=== PATIENT | male | born 1960 | race African-American/Black ===

== ENCOUNTER 2020-05-16 18:45 | IRF | payer OTHER, SELFPAY ==
--- NOTE | ~2020-05-16 | CT_ITS ---
EXAMINATION:CT chest w con DATE: 05/20/2020 12:39 INDICATION: Esophageal stricture or suspicious for malignancy. TECHNIQUE: Computed tomography (CT) of the chest was performed with 75 mL Omnipaque 350 intravenous c ontrast. Automated exposure control and iterative reconstruction technique were employed. The dose-le ngth product (DLP) was 147.05 mGy-cm. COMPARISON: None. FINDINGS: There is mild emphysema. A calcified right lung nodule is consistent with old granulomatous disease. No pleural effusion. The heart size is normal. There are coronary artery calcifications. No pericardial effusion. There is an 8.3 x 4.4 x 2.8 cm mass of the distal esophagus. The esophagus is dilated and contains fluid proximal to this mass. There are no pathologically enlarged lymph nodes. T here is a 10 mm hyperdense cyst in left kidney. There is mild thoracic spondylosis. IMPRESSION: 1. Esophageal mass, consistent with primary malignancy. No evidence of metastatic disease. Reviewed, dictated and finalized at location A. IMPRESSION: 1. Esophageal mass, consistent with primary malignancy. No evidence of metastat ic disease.
[2020-05-16 18:20] VITALS: BP 118/97; PULSE 96; RESP 20; TEMP 36.9; O2SAT 100
--- NOTE | 2020-05-16 18:40 | ADMGEN ---
This patient, Bonifacio Beyer, was admitted to [facility] Room 223-01. Patient/family oriented to hospital policies and general routines including ID bracelet, bed and alarms, visiting hours, pain management, procedures, bathroom and other care routines, personal items, smoking policy, room service/diet, and visiting hours. Valuables list has been completed. Information on how to activate the Rapid Response Team has been discussed. Patient/Family are encouraged to report perceived risks to care and to ask questions if they do not understand what they are told or what they should do.
[2020-05-16 18:44] VITALS: BMI 23.3
[2020-05-16 21:14] VITALS: BP 116/56; PULSE 85; RESP 18; TEMP 36.8; O2SAT 100
[2020-05-16] MEDS: oxyCODONE HCL (*CRX) 5 MG TAB IR 10 MG PO (22:14)
[2020-05-16] MEDS: GABAPENTIN 300 MG CAPSULE 600 MG PO (22:14)
[2020-05-16] MEDS: FAMOTIDINE 20 MG TABLET PO (22:15)
[2020-05-16] MEDS: ROSUVASTATIN 10 MG TABLET PO (22:15)
[2020-05-17 04:38] LABS: Basophils Percent Auto 0.6 % (0.2-1.2); Eosinophils Absolute Auto 0.1 K/mm3 (0-0.3); Eosinophils Percent Auto 1.8 % (0-4.4); Hemoglobin 9.6 g/dL (14.0-18.0); Immature Granulocyte Absolute 0.02 K/mm3 (0.00-0.031); Immature Granulocyte Percent A 0.3 % (0-0.5); Lymphocytes Absolute Auto 1.75 K/mm3 (0.9-3.2); Lymphocytes Percent Auto 26.1 % (18.3-44.2); Mean Corpuscular Hemoglobin 25.5 pg (26-34); Mean Corpuscular Volume 79.8 fl (80-100); Mean Platelet Volume 8.9 fl (7.4-10.4); Monocytes Absolute Auto 0.7 K/mm3 (0.1-0.6); Neutrophils Percent Auto 60.2 % (45.5-73.1); Platelet Count Result 393 k/mm3 (150-375); Red Blood Count 3.76 M/mm3 (4.6-6.20); White Blood Count 6.7 K/mm3 (4.5-10.0)
[2020-05-17 04:53] LABS: Anion Gap 7 mmol/L (8-16); Blood Urea Nitrogen 10 mg/dL (9-20); Calcium 10.4 mg/dL (8.4-10.2); Carbon Dioxide 30 mmol/L (22-30); Chloride 93 mmol/L (98-107); Estimated Glomerular Filt Rate > 60; Glucose 104 mg/dL (75-110); Potassium 4.5 mmol/L (3.4-5.0); Sodium 130 mmol/L (137-145)
[2020-05-17 05:16] LABS: Platelet Estimate Adequate (Adequate)
[2020-05-17 05:17] LABS: Microcytosis 1+ (NORMAL)
[2020-05-17 05:18] LABS: Hypochromasia 1+ (NORMAL)
[2020-05-17 05:19] VITALS: BP 116/65; PULSE 91; RESP 20; TEMP 37.3; O2SAT 100
--- NOTE | 2020-05-17 08:30 | PC.NURSE ---
pt refused multivitamin, colace, and miralax this morning. pt states we are giving him too many medications at once. He also stated he does not take miralax. updated.
[2020-05-17] MEDS: ASPIRIN 81 MG CHEWABLE TABLET PO (08:49)
[2020-05-17] MEDS: CLOPIDOGREL BISULFATE 75 MG TABLET PO (08:49)
[2020-05-17] MEDS: THERAPEUTIC MULTIVITAMINS/MINERALS TAB (*BKC) 1 TABLET PO (08:49)
[2020-05-17] MEDS: FAMOTIDINE 20 MG TABLET PO ×2 (08:49→17:14)
[2020-05-17] MEDS: GABAPENTIN 300 MG CAPSULE PO (08:49)
[2020-05-17] MEDS: amLODIPine BESYLATE 5 MG TABLET 10 MG PO (08:49)
[2020-05-17] MEDS: oxyCODONE HCL (*CRX) 5 MG TAB IR 10 MG PO (08:53)
[2020-05-17] MEDS: DOCUSATE SODIUM 100 MG CAPSULE PO ×2 (08:53→17:15)
[2020-05-17] MEDS: ONDANSETRON HCL ODT 4 MG TABLET PO (08:57)
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
--- NOTE | 2020-05-17 12:51 | PC.NURSE ---
pt refused 1200 gabapentin. updated.
[2020-05-17 13:08] VITALS: BMI 23.3
--- NOTE | 2020-05-17 13:24 | RPD ---
INDIVIDUALIZED PLAN OF CARE FOR Bonifacio Beyer Brief Synthesis of Pre-Admission Screen, Post-Admission Evaluation and Therapy Evaluations: The patient presents to rehab with severely calcified atherosclerosis left lower extremity s/p left below-knee amputation in the setting of a prior right below knee amputation. Comorbidities include peripheral artery disease, hypertension, hypercholesterolemia, chronic obstructive pulmonary disease, gastroesophageal reflux disease, Hepatitis C, acute postoperative pain, acute blood loss anemia, intermittent emesis, constipation, and hyponatremia. The complexity of the patient's medical management, nursing, and therapy needs require an inpatient rehab hospital stay with a physician-led interdisciplinary team approach. The patient?s needs will be best met in an intensive program vs. at a lower level of care. The patient requires physician services for medical oversight, management of post-op complications in the setting of present comorbidities, management of new diabetes mellitus diagnosis, and pain management. Post-op complications have included acute postoperative pain, acute blood loss anemia, hyponatremia, constipation, emesis, and hypertension. The patient requires nursing services for anticoagulation therapy, DVT prophylactics, IV administration, infection protection, medication management and education, pressure relief, and wound care. Deficits include:ADLs, Balance, Endurance, Family Training/Education, Mobility, Pain Management, ROM, Safety, Strength, and Transfers. District Home Economics Agent/Case Management for: Discharge Planning and Patient/Family Counseling Physical Therapy: 5 days per week for 90 minutes. Treatments may include: Therapeutic Exercise, Gait Training, Neuromuscular Re-education, Transfer Training, Community Reintegration, Bed Mobility, Patient/Family Education, Wheelchair Mobility Group Therapy/Concurrent Therapy Rationales: -Improve attention span during functional activities in a distracted environment. -Enhance problem solving and/or adequate judgment skills during functional activities in a distracted environment. -Promote increased safety awareness in a distracted environment to reduce fall risk with functional tasks, transfers, and ambulation to allow a more safe, self-sufficient return to the home environment. -Improve dynamic balance skills to promote safety and independence with functional activities in a distracted environment for maximum gain. Occupational Therapy: 5 days per week for 90 minutes. Treatments may include: Therapeutic Exercise, Therapeutic Activity, Cognitive Training, Self-Care Transfer Training, Community Reintegration, Home Management, Patient/Family Education, Wheelchair Mobility Training, Energy Conservation Training Group Therapy/Concurrent Therapy Rationales: -Allow therapist to observe and teach generalization and carry-over of skills learned in individual therapy. -Enhance problem solving and sequencing skills during therapeutic activities in a distracted environment. -Promote increased safety awareness in a realistic setting to reduce fall risk with functional tasks due to visual and verbal distractions. -Increase functional level with ADLs, ADL transfers and use of adaptive equipment through therapeutic activities with others while promoting safety to allow a more safe, self-sufficient return home. Medical Prognosis: Good Anticipated Length of Stay: 14 days Rehab Goals: Eating Goal: 06-Independent Oral Hygiene Goal: 06-Independent Toileting Hygiene Goal: 06-Independent Shower/Bathe Self Goal: 06-Independent Upper Body Dressing Goal: 06-Independent Lower Body Dressing Goal: 06-Independent Putting On/Taking Off Footwear Goal: 09-Not Applicable Rolling Left and Right Goal: 06-Independent Sit to Lying Goal: 06-Independent Lying to Sitting on Side of Bed Goal: 06-Independent Sit to Stand Goal: 04-Supervision or Touching Assistance Chair/Cmw-xl-Trnvs Transfer Goal: 06-Inde
[2020-05-17 14:00] VITALS: BP 133/71; PULSE 88; RESP 18; TEMP 37.2; O2SAT 100
[2020-05-17] MEDS: oxyCODONE/ACETAMINOPHEN (*CRX) 5-325 MG TABLET 1 TABLET PO (15:23)
[2020-05-17] MEDS: oxyCODONE HCL (*CRX) 5 MG TAB IR PO (15:24)
[2020-05-17 22:00] VITALS: BP 124/67; PULSE 95; RESP 18; TEMP 37.2; O2SAT 99
[2020-05-18 06:00] VITALS: BP 122/73; PULSE 99; RESP 18; TEMP 37.1; O2SAT 100
[2020-05-18] MEDS: FAMOTIDINE 20 MG TABLET PO (08:50)
[2020-05-18] MEDS: ONDANSETRON HCL ODT 4 MG TABLET PO (13:05)
[2020-05-18 14:00] VITALS: BP 138/73; PULSE 107; RESP 20; TEMP 36.4; O2SAT 100
[2020-05-18 19:50] VITALS: PULSE 107; RESP 20; O2SAT 100
[2020-05-18 21:56] VITALS: BP 158/78; PULSE 101; RESP 20; TEMP 36.9; O2SAT 100
[2020-05-19] MEDS: ONDANSETRON HCL ODT 4 MG TABLET PO (02:15)
[2020-05-19] MEDS: oxyCODONE HCL (*CRX) 5 MG TAB IR PO (02:15)
[2020-05-19 06:00] VITALS: BP 145/76; PULSE 105; RESP 20; TEMP 36.4; O2SAT 100
[2020-05-19 14:00] VITALS: BP 142/78; PULSE 112; RESP 20; TEMP 36.9; O2SAT 100
--- NOTE | 2020-05-19 14:00 | PCPTNOTE ---
Attempted to see pt and 0900 and at 13:55 this date for Physical Therapy Services. Pt. refused therapy on both occasions despite encouragement to participate.
--- NOTE | 2020-05-19 14:38 | PCOTNOTE ---
Attempted to see patient three times for skilled OT session this date. First attempt, patient reported of 10/10 pain in the back, stomach and Left leg phantom pain and stated, I don't want to be bothered. Second attempt, patient was asleep upon entry and per RN, try again later. Third attempt, patient washed face, and then stated, I want to be left alone to sleep. Practitioner in room for only 5 minutes, not enough functional or skilled activity to charge at this time. Due to patient refusing to participate in OT sessions multiple times, minutes were not met this date.
[2020-05-19 17:14] LABS: Anion Gap 11 mmol/L (8-16); Blood Urea Nitrogen 18 mg/dL (9-20); Calcium 11.5 mg/dL (8.4-10.2); Carbon Dioxide 28 mmol/L (22-30); Chloride 94 mmol/L (98-107); Estimated Glomerular Filt Rate > 60; Glucose 117 mg/dL (75-110); Potassium 4.2 mmol/L (3.4-5.0); Sodium 133 mmol/L (137-145)
--- NOTE | 2020-05-19 17:38 | WPDNEURORHBP ---
Subjective Date/time seen: 05/19/20 17:38 Interval history: this 59-year-old gentleman is here after having had a left BKA his constant complaint has been the difficulty swallowing and regurgitating all the liquids or the 40 takes and I have requested a GI consult the patient tells me that it has been an issue and however he was not able to have the endoscopy performed as he was supposed to have done On the other hand is not any distress his pain is under control denies any fever chills sore throat is on fluid restrictions Review of Systems Review of Systems: All systems reviewed & are unremarkable except as noted in HPI and below Functional Status Transfers Ability Ability to Transfer In/Out of Chair: Minimum Assistance X 1 Exam Const: General: comfortable and no acute distress HENMT: General nose exam: Normal nares present Mouth: Yes moist mucous membranes Eyes: General: appearance normal, both eyes and all related structures Neck: Neck: supple and no JVD Resp: Effort & Inspection: normal respiratory effort Auscultation: clear to auscultation bilaterally Cardio: Rate: regular rate Rhythm: regular rhythm GI: GI Palp: Yes Soft to palpation Auscultation: normal bowel sounds Skin: General skin exam: normal color and no rashes or lesions noted Neuro: Other: patient is awake and alert well oriented follows all commands has normal speech and language function normal cranial examination decreased strength generally in both upper lower extremities and left BKA looks clean Extrem: Other: left BKA Psych: Mental Status: mental status grossly normal Objective Data Vital Signs Vital Signs: Vital Signs - 24 hr 05/18/20 19:50 05/18/20 21:56 05/19/20 06:00 Temperature 36.9 C 36.4 C Pulse Rate 107 H 101 H 105 H Respiratory Rate 20 20 20 Blood Pressure 158/78 H 145/76 H Pulse Oximetry 100 100 100 05/19/20 14:00 Temperature 36.9 C Pulse Rate 112 H Respiratory Rate 20 Blood Pressure 142/78 H Pulse Oximetry 100 Intake/Output Intake/Output: Intake & Output 05/16/20 05/17/20 05/18/20 05/19/20 23:59 23:59 23:59 23:59 Intake Total 720 600 480 Balance 720 600 480 Meds/Results Medications: Active Medications Generic Name Dose Route Start Last Admin Trade Name Freq PRN Reason Stop Dose Admin Acetaminophen 500 mg 05/16/20 21:36 Tylenol Tablet PO Q4H PRN Mild Pain (1-3) Albuterol 2 puff 05/16/20 20:13 Proventil Hfa INHALATION QID PRN Shortness Of Breath Or Wheezing Amlodipine Besylate 10 mg 05/17/20 09:00 05/19/20 16:51 Norvasc PO Not Given DAILY [facility] Aspirin 81 mg 05/17/20 09:00 05/19/20 16:51 Aspirin Chewable PO Not Given DAILY [facility] Clopidogrel Bisulfate 75 mg 05/17/20 09:00 05/19/20 16:52 Plavix PO Not Given DAILY [facility] Docusate Sodium 100 mg 05/17/20 09:00 05/19/20 16:56 Colace Capsule PO Not Given BID [facility] Famotidine 20 mg 05/16/20 17:00 05/19/20 16:56 Pepcid PO Not Given BID [facility] Gabapentin 300 mg 05/17/20 09:00 05/19/20 16:55 Neurontin PO Not Given 0900,1200 [facility] Gabapentin 600 mg 05/16/20 18:00 05/18/20 19:16 Neurontin PO Not Given 1800 [facility] Multivitamins/Calcium 1 tablet 05/17/20 09:00 05/19/20 16:53 Therapeutic Multivitamins/Minerals PO Not Given DAILY [facility] Ondansetron HCl 4 mg 05/16/20 20:13 05/19/20 02:15 Zofran Odt PO 4 mg Q8H PRN Administration Nausea And Vomiting Oxycodone HCl 10 mg 05/16/20 20:13 05/17/20 08:53 Roxicodone Ir Tablet PO 10 mg Q3H PRN Administration Breakthrough Pain Oxycodone HCl 5 mg 05/16/20 21:41 05/19/20 02:15 Roxicodone Ir Tablet PO 5 mg Q6H PRN Administration Pain Rated 6 or Greater Oxycodone/Acetaminophen 1 tablet 05/16/20 20:13 05/17/20 15:23 Percocet 5-325 Mg PO 1 tablet Q6H PRN Administration Pain Rated 6 or Greater Polyethylene Glycol 17 gm 05/17/20 09:00
[2020-05-19] MEDS: GABAPENTIN 300 MG CAPSULE 600 MG PO (18:18)
--- NOTE | 2020-05-19 21:29 | PC.NURSE ---
pt would not take hs medication. patient stated he had been having emesis and did not want to have any more. md updated. will continue to monitor.
[2020-05-19 21:39] VITALS: BP 139/79; PULSE 73; RESP 16; TEMP 36.4; O2SAT 98
[2020-05-20] VITALS (7 sets, daily range): BP systolic 113–158; BP diastolic 77–98; PULSE 77–114; RESP 16–35; TEMP 36.1–37.2; O2SAT 94–100
[2020-05-20] MEDS: LACTATED RINGERS 1,000 ML 150 ML IV CONT (09:15)
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
--- NOTE | 2020-05-20 09:30 | PCOTNOTE ---
Attempted OT treatment at 9:30, treatment unable to be completed due to patient out for procedure. Treatment was rescheduled.
--- NOTE | 2020-05-20 09:39 | WPDANESEPPF ---
Anes - Initial Pre Proc Eval Procedure: Operation Date: 05/20/20 10:00 Proposed Procedures p Esophagogastroduodenoscopy - Jose Israel MD Date/Time: 05/20/20 09:39 Surgeon: Kurt Hoko MD Pre Op Diagnosis: Pina ROBERTSON Patient Data Age: 59 Gender: M Height: 4 ft 9 in Weight: 48.8 kg Last Vital Signs Temp 97.5 F L 05/20/20 09:11 Pulse 88 05/20/20 09:11 Resp 16 05/20/20 09:11 BP 148/90 H 05/20/20 09:11 Pulse Ox 94 05/20/20 09:11 Allergies Allergy/AdvReac Type Severity Reaction Status Date / Time No Known Allergies Allergy Verified 05/20/20 09:10 Home Medications Medication Instructions Recorded Confirmed Type acetaminophen 500 mg PO Q4H PRN 05/16/20 05/16/20 History albuterol sulfate [Proventil HFA] 2 puff INHALATION QID PRN 05/16/20 05/16/20 History amlodipine 10 mg PO DAILY 05/16/20 05/16/20 History aspirin 81 mg PO DAILY 05/16/20 05/16/20 History clopidogrel 75 mg PO DAILY 05/16/20 05/16/20 History docusate sodium 100 mg PO BID 05/16/20 05/16/20 History famotidine 20 mg PO BID 05/16/20 05/16/20 History gabapentin 300 mg PO TID 05/16/20 05/16/20 History multivit with min-folic acid 1 mg PO DAILY 05/16/20 05/16/20 History [Adult One Daily Multivitamin] ondansetron 4 mg PO Q8H PRN 05/16/20 05/16/20 History oxycodone 10 mg PO Q3H PRN 05/16/20 05/16/20 History oxycodone-acetaminophen 1 tablet PO Q6H PRN 05/16/20 05/16/20 History polyethylene glycol 3350 17 g PO DAILY 05/16/20 05/16/20 History rosuvastatin 10 mg PO HS 05/16/20 05/16/20 History Laboratory Tests 05/19/20 16:56 Sodium 133 mmol/L L mmol/L (137-145) Potassium 4.2 mmol/L mmol/L (3.4-5.0) Chloride 94 mmol/L L mmol/L (98-107) Carbon Dioxide 28 mmol/L mmol/L (22-30) Anion Gap 11 mmol/L mmol/L (8-16) BUN 18 mg/dL mg/dL (9-20) Creatinine 0.60 mg/dL L mg/dL (0.7-1.3) Estim Creat Clear Calc Not Reportable Estimated GFR > 60 (59 - ) Glucose 117 mg/dL H mg/dL (75-110) Calcium 11.5 mg/dL H mg/dL (8.4-10.2) Patient hx anesthesia problems: none Family hx anesthesia problems: none PMFSH Past Medical History Medical History Dysphagia Esophageal stricture Hepatitis C Hypertension Ischemic leg pain Neuropathic pain Family History Family History Other Unknown family medical history Social History Social History Smoking status: Current every day smoker Alcohol intake: current Drinks per week: 4 Substance use: never Substance use type: does not use Gender identity (if verbalized by the patient): Male Spiritual care concerns: No Anes - Eval Final PreProcedure Day of Procedure 05/20/20 09:39 Patient weight: thin Heart: regular rate and rhythm Lungs: clear to auscultation Airway: Mallampati scale class II Neurological: alert and oriented Last oral intake: >/= 8 hours ASA classification: III Emergent: no Anesthetic plan: proceed Anesthesia type and monitoring: general GIVS and standard monitoring Informed Consent: The patient's anesthetic plan and its attendant risks and benefits were discussed with the patient/family/POA. Questions were solicited and answers provided to the satisfaction of the patient/family/POA.
--- NOTE | 2020-05-20 10:47 | SUR.PHASEII ---
1027-PT TRANSPORTED BACK TO [facility] ROOM 223-1. sALINE LOCKED FLUSHED AND CAPPED TO BE MAINTAINED FOR CT CHEST. MAGDA RN INSTRUCTED ON NEED TO MAINTAIN SALINE LOCK FOR CT CHEST AND TO DISCONTINUE SALINE LOCK. MAGDA VERBALIZED UNDERSTANDING.
--- NOTE | 2020-05-20 10:51 | WPDNEURORHBP ---
Subjective Date/time seen: 05/20/20 10:51 59 year olds is status post left BKA with abdominal discomfort and swallowing difficulties for which GI consult was obtained has been started on proton pump inhibitor therapy by the entry level marketing assistant with keeping the head of the bed elevated in addition to the underlying hepatitis-C for which she is being followed by the sentence in reverse the hospitals has gone through 2 endoscopic exam which revealed grossly malignant appearing esophagus for which biopsy has been taken Review of Systems Review of Systems: All systems reviewed & are unremarkable except as noted in HPI and below Functional Status Transfers Ability Ability to Transfer In/Out of Chair: Minimum Assistance X 1 Exam Narrative: Exam Narrative: examined this stage reveals fairly comfortable ear nose throat examination normal heart regular with no murmur lungs clear no rhonchi or crepitation abdomen at this stage is soft normal bowel sounds neuro examination revealed her to have no change in the status follows all the verbal commands reflexes symmetrical except the lower extremities Objective Data Vital Signs Vital Signs: Vital Signs - 24 hr 05/19/20 14:00 05/19/20 21:39 05/20/20 05:52 Temperature 36.9 C 36.4 C L 36.1 C L Pulse Rate 112 H 73 77 Respiratory Rate 20 16 16 Blood Pressure 142/78 H 139/79 156/87 H Pulse Oximetry 100 98 94 05/20/20 09:11 05/20/20 09:52 05/20/20 10:02 Temperature 36.4 C L Pulse Rate 88 104 H 100 Respiratory Rate 16 30 H 35 H Blood Pressure 148/90 H 113/77 124/86 Pulse Oximetry 94 98 98 05/20/20 10:12 Temperature Pulse Rate 96 Respiratory Rate 28 H Blood Pressure 145/94 H Pulse Oximetry 96 Intake/Output Intake/Output: Intake & Output 05/17/20 05/18/20 05/19/20 05/20/20 23:59 23:59 23:59 23:59 Intake Total 720 600 480 400 Balance 720 600 480 400 Meds/Results Medications: Active Medications Generic Name Dose Route Start Last Admin Trade Name Freq PRN Reason Stop Dose Admin Acetaminophen 500 mg 05/16/20 21:36 Tylenol Tablet PO Q4H PRN Mild Pain (1-3) Albuterol 2 puff 05/16/20 20:13 Proventil Hfa INHALATION QID PRN Shortness Of Breath Or Wheezing Amlodipine Besylate 10 mg 05/17/20 09:00 05/19/20 16:51 Norvasc PO Not Given DAILY [facility] Aspirin 81 mg 05/17/20 09:00 05/19/20 16:51 Aspirin Chewable PO Not Given DAILY [facility] Clopidogrel Bisulfate 75 mg 05/17/20 09:00 05/19/20 16:52 Plavix PO Not Given DAILY [facility] Docusate Sodium 100 mg 05/17/20 09:00 05/19/20 16:56 Colace Capsule PO Not Given BID [facility] Famotidine 20 mg 05/16/20 17:00 05/19/20 16:56 Pepcid PO Not Given BID [facility] Gabapentin 300 mg 05/17/20 09:00 05/19/20 16:55 Neurontin PO Not Given 0900,1200 [facility] Gabapentin 600 mg 05/16/20 18:00 05/19/20 18:18 Neurontin PO 600 mg 1800 [facility] Administration Multivitamins/Calcium 1 tablet 05/17/20 09:00 05/19/20 16:53 Therapeutic Multivitamins/Minerals PO Not Given DAILY [facility] Ondansetron HCl 4 mg 05/16/20 20:13 05/19/20 02:15 Zofran Odt PO 4 mg Q8H PRN Administration Nausea And Vomiting Oxycodone HCl 10 mg 05/16/20 20:13 05/17/20 08:53 Roxicodone Ir Tablet PO 10 mg Q3H PRN Administration Breakthrough Pain Oxycodone HCl 5 mg 05/16/20 21:41 05/19/20 02:15 Roxicodone Ir Tablet PO 5 mg Q6H PRN Administration Pain Rated 6 or Greater Oxycodone/Acetaminophen 1 tablet 05/16/20 20:13 05/17/20 15:23 Percocet 5-325 Mg PO 1 tablet Q6H PRN Administration Pain Rated 6 or Greater Pantoprazole Sodium 40 mg 05/20/20 21:00 Protonix Iv IV PUSH Q12HR [facility] Polyethylene Glycol 17 gm 05/17/20 09:00 05/19/20 16:54 Miralax PO Not Given DAILY [facility] Rosuvastatin Calcium 10 mg 05/16/20 21:00 05/19/20 20:05 Crestor PO Not Given [facility] Labs Labs: Laboratory Results - last 24 h
--- NOTE | 2020-05-20 10:52 | PCOTNOTE ---
OT treatment re-attempted at 10:00 and 10:45. Despite attempts to reschedule pt he was unable to be seen this AM due to procedure and testing. Will continue to attempt.
[2020-05-20 10:59] LABS: Basophils Percent Auto 0.2 % (0.2-1.2); Eosinophils Percent Auto 0.1 % (0-4.4); Hematocrit 38.3 % (42.0-52.0); Hemoglobin 11.9 g/dL (14.0-18.0); Immature Granulocyte Absolute 0.05 K/mm3 (0.00-0.031); Immature Granulocyte Percent A 0.5 % (0-0.5); Lymphocytes Absolute Auto 1.66 K/mm3 (0.9-3.2); Lymphocytes Percent Auto 15.2 % (18.3-44.2); Mean Corpuscular HGB Conc 31.1 g/dl (32-36); Mean Corpuscular Hemoglobin 25.6 pg (26-34); Mean Corpuscular Volume 82.4 fl (80-100); Mean Platelet Volume 9.6 fl (7.4-10.4); Monocytes Absolute Auto 0.9 K/mm3 (0.1-0.6); Monocytes Percent Auto 8.2 % (2.6-8.5); Neutrophils Absolute Auto 8.3 K/mm3 (1.3-6.7); Neutrophils Percent Auto 75.8 % (45.5-73.1); Platelet Count Result 473 k/mm3 (150-375); Red Blood Count 4.65 M/mm3 (4.6-6.20); Red Cell Distribution Width 20.5 % (11.5-14.5); White Blood Count 10.9 K/mm3 (4.5-10.0)
[2020-05-20 11:09] LABS: Prothrombin Time 13.3 Seconds (11.1-14.7)
[2020-05-20 11:10] LABS: Alanine Aminotransferase 27 U/L (4-50); Albumin Level 4.2 g/dL (3.5-5.1); Alkaline Phosphatase 117 U/L (38-126); Anion Gap 13 mmol/L (8-16); Aspartate Amino Transferase 29 U/L (17-59); Bilirubin,Total 0.5 mg/dL (0.2-1.3); Blood Urea Nitrogen 22 mg/dL (9-20); Calcium 11.3 mg/dL (8.4-10.2); Carbon Dioxide 26 mmol/L (22-30); Chloride 95 mmol/L (98-107); Estimated Glomerular Filt Rate > 60; Glucose 112 mg/dL (75-110); Potassium 4.3 mmol/L (3.4-5.0); Sodium 134 mmol/L (137-145)
[2020-05-20 11:32] LABS: Iron 36 ug/dL (49-181)
[2020-05-20 11:41] LABS: Percent Iron Saturation 11 % (20-50)
--- NOTE | 2020-05-20 12:05 | PCPTNOTE ---
Mr. Beyer did not receive his physical therapy this am. The patient was taken to testing and gone all morning- unavailable. Will attempt therapy after lunch. Balbina Antoine PT
--- NOTE | 2020-05-20 13:17 | PC.NURSE ---
Patients daughter is here, I let Dr. Israel know that patient and daughter are anxious to speak with him about test results, his office sated he would not be able to be here until after hours(5pm), daughter made aware
--- NOTE | 2020-05-20 14:06 | PCPTNOTE ---
Bonifacio Beyer was evaluated for a slide board on 05/20/2020 by this physical therapist. The slide board will resolve patient's mobility limitations and will be used for ADL's within the home. The patient can safely use the slide board. ?The slide board will resolve the patient?s mobility deficits, including car transfers. Balbina Antoine PT
--- NOTE | 2020-05-20 14:48 | PCOTNOTE ---
OT minutes not met this date due to patient out for procedure in AM and pt resistive to all therapy in PM due to complaints of fatigue.
[2020-05-20] MEDS: DOCUSATE SODIUM LIQ 100 MG/10 ML UDC PO (17:00)
[2020-05-20] MEDS: GABAPENTIN 300 MG CAPSULE 600 MG PO (17:44)
[2020-05-20] MEDS: FAMOTIDINE 20 MG TABLET PO (17:44)
[2020-05-20] MEDS: PANTOPRAZOLE SODIUM IV 40 MG VIAL IV PUSH (22:06)
[2020-05-20] MEDS: ROSUVASTATIN 10 MG TABLET PO (22:07)
[2020-05-21 06:00] VITALS: BP 145/80; PULSE 108; RESP 16; TEMP 37.4; O2SAT 100
--- NOTE | 2020-05-21 07:25 | PC.NURSE ---
call placed to Dr Concepcion this morning to update him regarding consult for patient per Dr Israel request. Dr Concepcion to see today.
--- NOTE | 2020-05-21 08:04 | WPDANESPN ---
Anes - Prog Note Post-Op Date/Time: 05/21/20 08:04 Cardiovascular status: normal Respiratory status: normal Airway patency: baseline Mental status: baseline Post-Op hydration status: normal Vital Signs: Last Vital Signs Temp 37.4 C 05/21/20 06:00 Pulse 108 H 05/21/20 06:00 Resp 16 05/21/20 06:00 BP 145/80 H 05/21/20 06:00 Pulse Ox 100 05/21/20 06:00 Pain Score (VAS): 0 I/O: Intake & Output 05/20/20 05/21/20 05/21/20 23:59 07:59 15:59 Intake Total 250 Balance 250 Laboratory Tests 05/20/20 10:49 05/20/20 10:49 05/20/20 05/20/20 05/20/20 10:49 10:49 10:49 WBC 10.9 H RBC 4.65 Hgb 11.9 L Hct 38.3 L MCV 82.4 MCH 25.6 L MCHC 31.1 L RDW 20.5 H Plt Count 473 H MPV 9.6 Immature Gran % (Auto) 0.5 Neut % (Auto) 75.8 H Lymph % (Auto) 15.2 L Piatt % (Auto) 8.2 Eos % (Auto) 0.1 Baso % (Auto) 0.2 Lymph # (Auto) 1.66 Piatt # (Auto) 0.9 H Eos # (Auto) 0.0 Baso # (Auto) 0.0 Abs Immat Gran (auto) 0.05 H Absolute Neuts (auto) 8.3 H Absolute Nucleated RBC 0.0 Nucleated RBC % 0.0 PT 13.3 INR 1.0 Sodium Potassium Chloride Carbon Dioxide Anion Gap BUN Creatinine Estim Creat Clear Calc Estimated GFR Glucose Calcium Iron 36 L TIBC 317 % Saturation 11 L Ferritin 64.60 Total Bilirubin Direct Bilirubin AST ALT Alkaline Phosphatase Total Protein Albumin 05/20/20 10:49 WBC RBC Hgb Hct MCV MCH MCHC RDW Plt Count MPV Immature Gran % (Auto) Neut % (Auto) Lymph % (Auto) Piatt % (Auto) Eos % (Auto) Baso % (Auto) Lymph # (Auto) Piatt # (Auto) Eos # (Auto) Baso # (Auto) Abs Immat Gran (auto) Absolute Neuts (auto) Absolute Nucleated RBC Nucleated RBC % PT INR Sodium 134 L Potassium 4.3 Chloride 95 L Carbon Dioxide 26 Anion Gap 13 BUN 22 H Creatinine 0.60 L Estim Creat Clear Calc Not Reportable Estimated GFR > 60 Glucose 112 H Calcium 11.3 H Iron TIBC % Saturation Ferritin Total Bilirubin 0.5 Direct Bilirubin 0.0 AST 29 ALT 27 Alkaline Phosphatase 117 Total Protein 9.0 H Albumin 4.2 Post-procedural complaints: none Patient Feedback: Patient satisfied with anesthetic care.
[2020-05-21] MEDS: PANTOPRAZOLE SODIUM IV 40 MG VIAL IV PUSH (09:00)
--- NOTE | 2020-05-21 09:21 | WPDGIPROGNO ---
Progress Note: A&P Assessment and Plan (1) Cancer of distal third of esophagus: Code(s): C15.5 - Malignant neoplasm of lower third of esophagus Status: Acute Assessment and Plan: Final histology on esophageal mass pending. Oncology consultation pending. CT scan reveals no obvious metastases. Plan is to proceed with percutaneous endoscopic gastrostomy tomorrow. Anticipate Oncology to consider radiation and chemo. Hopefully for ultimate resection. This patient [facility] under the care of the hospitalist service. nutrition is a vital importance in order to tolerated chemotherapy. Also to continue rehab. Currently patient too weak for rehab. (2) Dysphagia: Code(s): R13.10 - Dysphagia, unspecified Status: Acute (3) Hepatitis C: Code(s): B19.20 - Unspecified viral hepatitis C without hepatic coma Status: Acute Assessment and Plan: Hepatitis C by sit history. Status of treatment for this is unclear. (4) Complete below-knee amputation of right lower extremity: Code(s): S88.111A - Complete traumatic amputation at level between knee and ankle, right lower leg, initial encounter Status: Acute (5) Complete below-knee amputation of left lower extremity: Code(s): S88.112A - Complete traumatic amputation at level between knee and ankle, left lower leg, initial encounter Status: Acute Subjective Date/time seen: 05/21/20 09:21 Patient reports unable to keep but small amounts of liquid down. Denies any abdominal pain. He states he is too weak for rehab. Review of Systems Review of Systems: All systems reviewed & are unremarkable except as noted in HPI and below Exam Narrative: Exam Narrative: Physical exam reveals patient comfortable at rest. HEENT exam unremarkable throat is clear. Lungs are clear. Heart without murmur. Abdomen is soft and nontender bilateral amputations noted. Objective Data Vital Signs Vital Signs: Vital Signs - 24 hr 05/20/20 09:52 05/20/20 10:02 05/20/20 10:12 Temperature Pulse Rate 104 H 100 96 Respiratory Rate 30 H 35 H 28 H Blood Pressure 113/77 124/86 145/94 H Pulse Oximetry 98 98 96 05/20/20 14:00 05/20/20 22:00 05/21/20 06:00 Temperature 97.9 F 98.9 F 99.3 F Pulse Rate 114 H 105 H 108 H Respiratory Rate 20 18 16 Blood Pressure 158/98 H 146/86 H 145/80 H Pulse Oximetry 100 100 100 Intake/Output Intake/Output: Intake & Output 05/18/20 05/19/20 05/20/20 05/21/20 23:59 23:59 23:59 23:59 Intake Total 600 480 400 250 Balance 600 480 400 250 Meds/Results Medications: Active Medications Generic Name Dose Route Start Last Admin Trade Name Freq PRN Reason Stop Dose Admin Acetaminophen 500 mg 05/20/20 17:33 Tylenol Elixir PO Q4H PRN PAIN 1-3 Albuterol 2 puff 05/16/20 20:13 Proventil Hfa INHALATION QID PRN Shortness Of Breath Or Wheezing Amlodipine Besylate 10 mg 05/17/20 09:00 05/20/20 09:00 Norvasc PO Not Given DAILY [facility] Aspirin 81 mg 05/17/20 09:00 05/20/20 09:00 Aspirin Chewable PO Not Given DAILY [facility] Clopidogrel Bisulfate 75 mg 05/17/20 09:00 05/20/20 09:00 Plavix PO Not Given DAILY [facility] Docusate Sodium 100 mg 05/20/20 17:00 05/20/20 17:00 Colace Liquid PO 100 mg BID [facility] Administration Famotidine 20 mg 05/16/20 17:00 05/20/20 17:44 Pepcid PO 20 mg BID [facility] Administration Gabapentin 300 mg 05/17/20 09:00 05/20/20 12:51 Neurontin PO Not Given 0900,1200 [facility] Gabapentin 600 mg 05/16/20 18:00 05/20/20 17:44 Neurontin PO 600 mg 1800 [facility] Administration Multivitamins/Minerals 15 ml 05/21/20 09:00 Centrum Liquid PO QAM [facility] Ondansetron HCl 4 mg 05/16/20 20:13 05/19/20 02:15 Zofran Odt PO 4 mg Q8H PRN Administration Nausea And Vomiting Oxycodone HCl 10 mg 05/16/20 20:13 05/17/20 08:53 Roxicodo
--- NOTE | 2020-05-21 09:45 | PCPTNOTE ---
Bonifacio Beyer was evaluated for a slideboard on 05/21/2020 by this physical therapist. The slideboard will resolve patient's mobility limitations and will be used for ADL's within the home. The patient can safely use the slideboard. ?The slideboard will resolve the patient?s mobility deficits, including improved independence with unlevel and car transfers. Lety Cordero, PT. DPT
[2020-05-21 10:02] LABS: Basophils Percent Auto 0.3 % (0.2-1.2); Eosinophils Percent Auto 0.1 % (0-4.4); Hematocrit 35.1 % (42.0-52.0); Hemoglobin 11.2 g/dL (14.0-18.0); Immature Granulocyte Absolute 0.08 K/mm3 (0.00-0.031); Immature Granulocyte Percent A 0.7 % (0-0.5); Lymphocytes Percent Auto 14.1 % (18.3-44.2); Mean Corpuscular HGB Conc 31.9 g/dl (32-36); Mean Corpuscular Hemoglobin 25.6 pg (26-34); Mean Corpuscular Volume 80.3 fl (80-100); Mean Platelet Volume 9.3 fl (7.4-10.4); Monocytes Percent Auto 8.5 % (2.6-8.5); Neutrophils Absolute Auto 8.7 K/mm3 (1.3-6.7); Neutrophils Percent Auto 76.3 % (45.5-73.1); Platelet Count Result 503 k/mm3 (150-375); Red Blood Count 4.37 M/mm3 (4.6-6.20); Red Cell Distribution Width 19.7 % (11.5-14.5); White Blood Count 11.4 K/mm3 (4.5-10.0)
[2020-05-21 10:11] LABS: INR 1.1; Prothrombin Time 13.7 Seconds (11.1-14.7)
[2020-05-21 10:12] LABS: Partial Thromboplastin Time 28.6 SECONDS (22.3-36.8)
[2020-05-21 10:14] LABS: Anion Gap 9 mmol/L (8-16); Blood Urea Nitrogen 25 mg/dL (9-20); Calcium 11.4 mg/dL (8.4-10.2); Carbon Dioxide 30 mmol/L (22-30); Chloride 92 mmol/L (98-107); Estimated Glomerular Filt Rate > 60; Glucose 112 mg/dL (75-110); Potassium 4.4 mmol/L (3.4-5.0); Sodium 131 mmol/L (137-145)
[2020-05-21] MEDS: amLODIPine BESYLATE 5 MG TABLET 10 MG PO (13:49)
[2020-05-21 14:00] VITALS: BP 160/91; PULSE 110; RESP 16; TEMP 36.4; O2SAT 97
--- NOTE | 2020-05-21 15:08 | WPDNEURORHBP ---
Subjective Date/time seen: 05/21/20 15:08 Interval history: this 59-year-old Afro-[place] gentleman is here after having had the left BKA. He has at least few months history of not able to eat and throwing up which was evaluated by our fixed wing aircraft flight mechanic and as it turns out unfortunately the patient does indeed seem to have esophageal cancer at the lower 3rd for which the biopsies have been taken a CT of the chest does reveal as of usual mass however no metastases the plan is for the PEG tomorrow and then oncology consultation for ultimate treatment for the cancer the patient overall is stable and this was discussed in over team conference with the daughter in fact Dr. perez the fixed wing aircraft flight mechanic was able to talk to her yesterday Review of Systems Review of Systems: All systems reviewed & are unremarkable except as noted in HPI and below Functional Status Transfers Ability Ability to Transfer In/Out of Chair: Standby Assistance Exam Const: General: comfortable and no acute distress HENMT: General nose exam: Normal nares present Mouth: Yes moist mucous membranes Eyes: General: appearance normal, both eyes and all related structures Neck: Neck: supple and no JVD Resp: Effort & Inspection: normal respiratory effort Auscultation: clear to auscultation bilaterally Cardio: Rate: regular rate Rhythm: regular rhythm GI: GI Palp: Yes Soft to palpation Auscultation: normal bowel sounds Skin: General skin exam: normal color and no rashes or lesions noted Neuro: Other: patient is awake alert and well oriented not any distress the BKA is doing fairly well has generalized weakness Extrem: Other: left BKA Psych: Mental Status: mental status grossly normal Objective Data Vital Signs Vital Signs: Vital Signs - 24 hr 05/20/20 22:00 05/21/20 06:00 05/21/20 14:00 Temperature 37.2 C 37.4 C 36.4 C Pulse Rate 105 H 108 H 110 H Respiratory Rate 18 16 16 Blood Pressure 146/86 H 145/80 H 160/91 H Pulse Oximetry 100 100 97 Intake/Output Intake/Output: Intake & Output 05/18/20 05/19/20 05/20/20 05/21/20 23:59 23:59 23:59 23:59 Intake Total 600 480 760 370 Balance 600 480 760 370 Meds/Results Medications: Active Medications Generic Name Dose Route Start Last Admin Trade Name Freq PRN Reason Stop Dose Admin Acetaminophen 500 mg 05/20/20 17:33 Tylenol Elixir PO Q4H PRN PAIN 1-3 Albuterol 2 puff 05/16/20 20:13 Proventil Hfa INHALATION QID PRN Shortness Of Breath Or Wheezing Amlodipine Besylate 10 mg 05/17/20 09:00 05/21/20 13:49 Norvasc PO 10 mg DAILY [facility] Administration Aspirin 81 mg 05/17/20 09:00 05/21/20 13:49 Aspirin Chewable PO Not Given DAILY [facility] Clopidogrel Bisulfate 75 mg 05/17/20 09:00 05/21/20 13:49 Plavix PO Not Given DAILY [facility] Docusate Sodium 100 mg 05/20/20 17:00 05/21/20 13:50 Colace Liquid PO Not Given BID [facility] Famotidine 20 mg 05/16/20 17:00 05/21/20 13:50 Pepcid PO Not Given BID [facility] Gabapentin 300 mg 05/17/20 09:00 05/21/20 13:53 Neurontin PO Not Given 0900,1200 [facility] Gabapentin 600 mg 05/16/20 18:00 05/20/20 17:44 Neurontin PO 600 mg 1800 [facility] Administration Multivitamins/Minerals 15 ml 05/21/20 09:00 05/21/20 13:51 Centrum Liquid PO Not Given [facility] Ondansetron HCl 4 mg 05/16/20 20:13 05/19/20 02:15 Zofran Odt PO 4 mg Q8H PRN Administration Nausea And Vomiting Oxycodone HCl 10 mg 05/16/20 20:13 05/17/20 08:53 Roxicodone Ir Tablet PO 10 mg Q3H PRN Administration Breakthrough Pain Oxycodone HCl 5 mg 05/16/20 21:41 05/19/20 02:15 Roxicodone Ir Tablet PO 5 mg Q6H PRN Administration Pain Rated 6 or Greater Oxycodone/Acetaminophen 1 tablet 05/16/20 20:13 05/17/20 15:23 Percocet 5-325 Mg PO 1 tablet Q6H PRN Administration Pain Rated 6 or Greater Pantoprazole Sodium 40 mg 05/20/20 21:00 05/21/20 0
--- NOTE | 2020-05-21 16:33 | PDONCCN ---
HPI - Date of Consult Date/Time: 05/21/20 16:33 Requesting Physician: Kurt Hook MD Primary Care Provider: Phill Cuenca, - Consult Narrative Reason for consult: Esophageal mass Narrative: Bonifacio Beyer is a 59 year old male This is a 59-year-old male with history of peripheral vascular disease along with history of smoking and drinking had left [id number] amputation done in September of 2019. He had right [id number] amputation done just 2 weeks ago at [facility]. According to patient been dealing with dysphagia for solids and liquids and has lost more than 30 lb weight in losses multiyear zhang. We complain of some with epigastric pain. He denies any bleeding and bruising. Patient has intermittent nausea vomiting for last 3-4 months duration.. Denies any melena hematochezia. He had EGD done by Dr. Israel. EGD on May 20 showed malignant-appearing mass with intrinsic stenosis in the distal esophagus. Biopsies were taken and pathology is pending. CT chest done showed esophageal mass in the distal esophagus without any evidence of metastatic disease. Review of Systems - Review of Systems All systems reviewed & are unremarkable except as noted in HPI and [facility] Medical History: Medical History (Last Reviewed 05/20/20 @ 09:20 by Jose Israel MD) Dysphagia Esophageal stricture Hepatitis C Hypertension Ischemic leg pain Neuropathic pain Family History: Family History (Last Reviewed 05/20/20 @ 09:20 by Jose Israel MD) Other Unknown family medical history - Social History Social History: Social History (Last Reviewed 05/20/20 @ 09:20 by Jose Israel MD) Gender Identity: Gender identity (if verbalized by the patient): Male Alcohol Use: Alcohol intake: current Drinks per week: 4 Substance Use: Substance use: never Substance use type: does not use Others: Spiritual care concerns: No Smoking Status: Smoking status: Current every day smoker Meds Home Medications Medication Instructions Recorded Confirmed Type acetaminophen 500 mg PO Q4H PRN 05/16/20 05/16/20 History albuterol sulfate [Proventil HFA] 2 puff INHALATION QID PRN 05/16/20 05/16/20 History amlodipine 10 mg PO DAILY 05/16/20 05/16/20 History aspirin 81 mg PO DAILY 05/16/20 05/16/20 History clopidogrel 75 mg PO DAILY 05/16/20 05/16/20 History docusate sodium 100 mg PO BID 05/16/20 05/16/20 History famotidine 20 mg PO BID 05/16/20 05/16/20 History gabapentin 300 mg PO TID 05/16/20 05/16/20 History multivit with min-folic acid 1 mg PO DAILY 05/16/20 05/16/20 History [Adult One Daily Multivitamin] ondansetron 4 mg PO Q8H PRN 05/16/20 05/16/20 History oxycodone 10 mg PO Q3H PRN 05/16/20 05/16/20 History oxycodone-acetaminophen 1 tablet PO Q6H PRN 05/16/20 05/16/20 History polyethylene glycol 3350 17 g PO DAILY 05/16/20 05/16/20 History rosuvastatin 10 mg PO HS 05/16/20 05/16/20 History Allergies Allergy/AdvReac Type Severity Reaction Status Date / Time No Known Allergies Allergy Verified 05/20/20 09:10 Results - Labs CBC & Chem 7: 05/21/20 09:51 05/21/20 09:51 Labs: Short CBC 05/21/20 Range/Units 09:51 WBC 11.4 H (4.5-10.0) K/mm3 Hgb 11.2 L (14.0-18.0) g/dL Hct 35.1 L (42.0-52.0) % Plt Count 503 H (150-375) k/mm3 [facility] 05/21/20 09:51 Sodium 131 L Potassium 4.4 Chloride 92 L Carbon Dioxide 30 BUN 25 H Creatinine 0.60 L Glucose 112 H Calcium 11.4 H Assessment and Plan - Additional Plan Squamous cell carcinoma esophagus. Patient is status post EGD and biopsy. EGD showed malignant-appearing mass with intrinsic stenosis of the distal esophagus. CT scan of the chest showed esophageal mass measures 8.3 x 4.4 x 2.8 cm without any evidence of metastatic disease. This patient has a history of peripheral vascular disease status post bilateral be
[2020-05-21] MEDS: CYANOCOBALAMIN INJ 1,000 MCG/ML VIAL 1000 MCG IM (18:02)
[2020-05-21] MEDS: IRON SUCROSE COMPLEX 500 MG in SODIUM CHLORIDE 0.9% IV 250 ML 78.6 MG IVPB (18:03)
[2020-05-21 22:00] VITALS: BP 147/86; PULSE 110; RESP 18; TEMP 36.4; O2SAT 100
--- NOTE | 2020-05-21 22:22 | PC.NURSE ---
pt iv infiltrated during day shift. iv access unavailable at this time. multiple attempts have been made to restart iv access.
[2020-05-22] VITALS (8 sets, daily range): BP systolic 103–154; BP diastolic 72–90; PULSE 68–114; RESP 16–29; TEMP 36.1–36.8; O2SAT 98–100
--- NOTE | 2020-05-22 05:55 | PC.NURSE ---
patient refused po hs med last night stating it would make him sick. md updated.His other medication was not given due to IV access infiltrating on previous shift and nursing unable to get iv access reestablished. call placed to Glory with message left to help with access.
--- NOTE | 2020-05-22 07:47 | PCOTNOTE ---
Attempted AM treatment per patient requested time; however, patient reports he was unable to sleep last night and is awaiting nursing procedure. Patient declined OT at this time but states he would like to participate at a later time if able. Will reschedule and continue to attempt treatment.
--- NOTE | 2020-05-22 09:35 | PC.NURSE ---
IV access obtained by Glory Chen, vascular access nurse, #[id number] in left forearm, she suggested that no further iron be given through this IV, patient has very poor vascular access, I called Dr. Concepcion's office to update. Patient is not c/o of any pain this am. has remained NPO, called [facility] to come speak with patient per his request
[2020-05-22] MEDS: LACTATED RINGERS 1,000 ML 150 ML IV CONT (10:25)
--- NOTE | 2020-05-22 10:37 | PCDIET ---
Nutrition Follow-Up Complete: Nutrition Diagnosis: Predicted suboptimal oral intake related to decreased appetite as evidenced by patient statements and reported poor intake prior to admission. Nutrition Goal: Patient to consume 50% of meals/supplements or greater. Goal not met. Patient taking some clear liquids previously. Currently in GI lab for PEG placement due to esophageal mass. Recommend initiating enteral feedings when medically appropriate: Jevity 1.2 beginning at 20mL/hr and advancing by 10mL/hr every 8 hours, as tolerated, to goal of 70mL/hr. Given 22 hour/day infusion, this will provide 1848kcal, 85g protein and 1242mL free water. Suggest 50mL water flush every 4 hours and adjust, as needed. If bolus feedings are preferred, recommend 75mL Jevity 1.2 bolus x 1; if tolerated, increase each subsequent bolus by 75mL (every 4 hours) to goal of 250mL every 4 hours x 6 feedings per day. Flush with 50mL water every 4 hours and adjust, as needed, per fluid status. Last recorded weight is 48.8 kg. Recommend obtaining new weight. Bowel Motility: Last BM 05/16/20 per nursing flowsheet. Labs Reviewed: Hgb (11.2), Hct (35.1), BUN (25), Cr (0.6), Na (131), Ca (11.4) Meds Noted: Albuterol, Colace, Pepcid, Centrum, Protonix, Miralax Additional Notes: Noted patient has been unable to swallow some oral medications. Expect BM with initiating of tube feedings and administration of Miralax and/or Colace via PEG. Left leg with BKA site, although no documented pressure ulcers. Will continue to monitor with new goal of patient to meet estimated nutritional needs. Nutrition Monitoring and Evaluation: Follow up every Wednesday/Wednesday.
--- NOTE | 2020-05-22 11:02 | WPDANESEPPF ---
Anes - Initial Pre Proc Eval Procedure: Operation Date: 05/20/20 10:00 Proposed Procedures p Esophagogastroduodenoscopy - Jose Israel MD Operation Date: 05/22/20 11:00 Proposed Procedures p Percutaneous Endoscopic Gastrostomy - Jose Israel MD Date/Time: 05/22/20 11:02 Surgeon: Kurt Hook MD Pre Op Diagnosis: Pina NANCEA Patient Data Age: 59 Gender: M Height: 4 ft 9 in Weight: 48.8 kg Last Vital Signs Temp 97.4 F L 05/22/20 10:24 Pulse 81 05/22/20 10:24 Resp 18 05/22/20 10:24 BP 133/86 05/22/20 10:24 Pulse Ox 100 05/22/20 10:24 Allergies Allergy/AdvReac Type Severity Reaction Status Date / Time No Known Allergies Allergy Verified 05/20/20 09:10 Home Medications Medication Instructions Recorded Confirmed Type acetaminophen 500 mg PO Q4H PRN 05/16/20 05/16/20 History albuterol sulfate [Proventil HFA] 2 puff INHALATION QID PRN 05/16/20 05/16/20 History amlodipine 10 mg PO DAILY 05/16/20 05/16/20 History aspirin 81 mg PO DAILY 05/16/20 05/16/20 History clopidogrel 75 mg PO DAILY 05/16/20 05/16/20 History docusate sodium 100 mg PO BID 05/16/20 05/16/20 History famotidine 20 mg PO BID 05/16/20 05/16/20 History gabapentin 300 mg PO TID 05/16/20 05/16/20 History multivit with min-folic acid 1 mg PO DAILY 05/16/20 05/16/20 History [Adult One Daily Multivitamin] ondansetron 4 mg PO Q8H PRN 05/16/20 05/16/20 History oxycodone 10 mg PO Q3H PRN 05/16/20 05/16/20 History oxycodone-acetaminophen 1 tablet PO Q6H PRN 05/16/20 05/16/20 History polyethylene glycol 3350 17 g PO DAILY 05/16/20 05/16/20 History rosuvastatin 10 mg PO HS 05/16/20 05/16/20 History Laboratory Tests 05/21/20 09:49 Vitamin B12 429.0 pg/mL pg/mL ([id number]) Patient hx anesthesia problems: none Family hx anesthesia problems: none [facility] Past Medical History Medical History Dysphagia Esophageal stricture Hepatitis C Hypertension Ischemic leg pain Neuropathic pain Family History Family History Other Unknown family medical history Social History Social History Smoking status: Current every day smoker Alcohol intake: current Drinks per week: 4 Substance use: never Substance use type: does not use Gender identity (if verbalized by the patient): Male Spiritual care concerns: No Anes - Eval Final PreProcedure Day of Procedure 05/22/20 11:02 Patient weight: normal Heart: regular rate and rhythm Lungs: clear to auscultation Airway: Mallampati scale class II Neurological: alert and oriented Last oral intake: >/= 8 hours ASA classification: IV Emergent: no Anesthetic plan: proceed Anesthesia type and monitoring: general GIVS and standard monitoring Informed Consent: The patient's anesthetic plan and its attendant risks and benefits were discussed with the patient/family/POA. Questions were solicited and answers provided to the satisfaction of the patient/family/POA.
--- NOTE | 2020-05-22 12:04 | WPDNEURORHBP ---
Subjective Date/time seen: 05/22/20 12:04 Interval history: this 59-year-old gentleman at the time of the examination early this morning was ready to go for the PEG placement due to finding of most likely esophageal cancer at the lower 3rd for which the Ultmann rox therapy will be offered once he gets through the rehab where he came because of left BKA his left BKA is stable he denies any headache nausea however he does have vomiting episode related to his stricture which is secondary to the esophageal cancer as documented by the Gastroenterology Review of Systems Review of Systems: All systems reviewed & are unremarkable except as noted in HPI and below Functional Status Transfers Ability Ability to Transfer In/Out of Chair: Standby Assistance Exam Const: General: comfortable and no acute distress HENMT: General nose exam: Normal nares present Mouth: Yes moist mucous membranes Eyes: General: appearance normal, both eyes and all related structures Neck: Neck: supple and no JVD Resp: Effort & Inspection: normal respiratory effort Auscultation: clear to auscultation bilaterally Cardio: Rate: regular rate Rhythm: regular rhythm GI: GI Palp: Yes Soft to palpation Auscultation: normal bowel sounds Skin: General skin exam: normal color and no rashes or lesions noted Neuro: Other: patient remains awake alert well oriented follows all commands with normal speech and language function a left BKA and generalized weakness Extrem: Other: left BKA is clean Psych: Mental Status: mental status grossly normal Objective Data Vital Signs Vital Signs: Vital Signs - 24 hr 05/21/20 14:00 05/21/20 22:00 05/22/20 05:50 Temperature 36.4 C 36.4 C 36.1 C L Pulse Rate 110 H 110 H 114 H Respiratory Rate 16 18 16 Blood Pressure 160/91 H 147/86 H 134/74 Pulse Oximetry 97 100 100 05/22/20 10:24 05/22/20 11:32 05/22/20 11:42 Temperature 36.3 C L Pulse Rate 81 99 96 Respiratory Rate 18 29 H 25 H Blood Pressure 133/86 103/72 141/89 H Pulse Oximetry 100 100 100 05/22/20 11:52 Temperature Pulse Rate 98 Respiratory Rate 23 H Blood Pressure 149/90 H Pulse Oximetry 100 Intake/Output Intake/Output: Intake & Output 05/19/20 05/20/20 05/21/20 05/22/20 23:59 23:59 23:59 23:59 Intake Total 480 760 850 200 Output Total 600 Balance 480 760 250 200 Meds/Results Medications: Active Medications Generic Name Dose Route Start Last Admin Trade Name Freq PRN Reason Stop Dose Admin Acetaminophen 500 mg 05/20/20 17:33 Tylenol Elixir PO Q4H PRN PAIN 1-3 Albuterol 2 puff 05/16/20 20:13 Proventil Hfa INHALATION QID PRN Shortness Of Breath Or Wheezing Amlodipine Besylate 10 mg 05/17/20 09:00 05/22/20 09:41 Norvasc PO Not Given DAILY [facility] Aspirin 81 mg 05/17/20 09:00 05/22/20 09:41 Aspirin Chewable PO Not Given DAILY [facility] Clopidogrel Bisulfate 75 mg 05/17/20 09:00 05/22/20 09:42 Plavix PO Not Given DAILY [facility] Docusate Sodium 100 mg 05/20/20 17:00 05/22/20 09:42 Colace Liquid PO Not Given BID [facility] Famotidine 20 mg 05/16/20 17:00 05/22/20 09:42 Pepcid PO Not Given BID [facility] Gabapentin 300 mg 05/17/20 09:00 05/22/20 09:42 Neurontin PO Not Given 0900,1200 [facility] Gabapentin 600 mg 05/16/20 18:00 05/21/20 18:03 Neurontin PO Not Given 1800 [facility] Multivitamins/Minerals 15 ml 05/21/20 09:00 05/22/20 09:42 Centrum Liquid PO Not Given QAM [facility] Ondansetron HCl 4 mg 05/16/20 20:13 05/19/20 02:15 Zofran Odt PO 4 mg Q8H PRN Administration Nausea And Vomiting Oxycodone HCl 10 mg 05/16/20 20:13 05/17/20 08:53 Roxicodone Ir Tablet PO 10 mg Q3H PRN Administration Breakthrough Pain Oxycodone HCl 5 mg 05/16/20 21:41 05/19/20 02:15 Roxicodone Ir Tablet PO 5 mg Q6H PRN Administration Pain Rated 6 or Greater Oxycodone/Acetaminophen 1 tablet 05/16/20 20:13
--- NOTE | 2020-05-22 12:15 | PC.NURSE ---
1200 patient returned to room, alert, peg tube in place, not complaining of any pain
--- NOTE | 2020-05-22 13:31 | PCDIET ---
MD consult received. PEG placed with plan to start Jevity 1.5 later today. Recommend goal rate of 55mL/hr Jevity 1.5 x 22 hours/day for 1815kcal, 77g protein and 919mL free water. Suggest 100mL water flush every 6 hours. If bolus feedings preferred, suggest 100mL Jevity 1.5 x 1; if tolerated x 6 hours, increase to 200mL x 1; if tolerated x 6 hours, increase to goal of 300mL every 6 hours x 4 feeds/day. This will provide 1800kcal, 76g protein and 912mL free water. Recommend flushing with 100mL water every 6 hours.
--- NOTE | 2020-05-22 13:34 | PCOTNOTE ---
Attempted OT treatment, patient reports that he is fatigues, is having some abdominal pain and is fearful of all movement at this time. Patient declined participation in all therapy but states he will participate tomorrow.
--- NOTE | 2020-05-22 13:58 | PCPTNOTE ---
Mr. Beyer is unable to participate in physical therapy today due to having a peg tube placed, then not feeling well after procedure. Balbina Antoine PT
[2020-05-22] MEDS: FAMOTIDINE 20 MG TABLET PO (17:00)
[2020-05-22] MEDS: DOCUSATE SODIUM LIQ 100 MG/10 ML UDC PO (18:35)
[2020-05-22] MEDS: ACETAMINOPHEN ELIXIR 325 MG/10.15 ML UDC 500 MG PO (18:36)
[2020-05-22] MEDS: ROSUVASTATIN 10 MG TABLET PO (22:09)
[2020-05-23 06:00] VITALS: BP 128/83; PULSE 98; RESP 20; TEMP 37.4; O2SAT 100
[2020-05-23] MEDS: LANSOPRAZOLE ORAL SUSP 30 MG/10 ML ORAL.SUSP FEED TUBE (06:08)
--- NOTE | 2020-05-23 07:30 | PCOTNOTE ---
Attempted OT treatment at 7:30 per patient request. Patient states he is in more pain than he anticipated when he requested early treatment and requests to reschedule treatment at 8:30. Will reschedule and continue to attempt.
[2020-05-23 10:40] VITALS: PULSE 94; RESP 18; O2SAT 100
[2020-05-23] MEDS: MULTIVIT W/ IRON, MINERALS 15 ML LIQUID (*BKC) PO (10:51)
[2020-05-23] MEDS: amLODIPine BESYLATE 5 MG TABLET 10 MG PO (10:51)
[2020-05-23] MEDS: FAMOTIDINE 20 MG TABLET PO ×2 (10:51→17:17)
[2020-05-23] MEDS: GABAPENTIN 300 MG CAPSULE PO (10:51)
[2020-05-23] MEDS: ASPIRIN 81 MG CHEWABLE TABLET PO (10:52)
[2020-05-23] MEDS: polyethylene glycoL 3350 17 GM POWD.PACK PO (10:52)
[2020-05-23] MEDS: CLOPIDOGREL BISULFATE 75 MG TABLET PO (10:52)
--- NOTE | 2020-05-23 11:00 | WPDGIPROGNO ---
Progress Note: A&P Additional Plan Patient comfortable this morning. Notices mild incisional discomfort at PEG site. Tolerating tube feedings without difficulty. Also able to tolerate liquid diet. Physical exam reveals patient to be alert afebrile anicteric. Lungs are clear. Heart without murmur. Abdomen bowel sounds are present soft PEG tube in the left upper quadrant healing well. Midline scar noted. Impression 1. Esophageal cancer. Squamous cell cancer of the esophagus noted. Plan is for follow-up with oncology after discharge. Likely will require PET scan and start chemo/radiation therapy. 2. Nutritional support. Now status post PEG tube. Plan is to continue tube feedings at home. Home health will assist with implementing this period local care to PEG tube site should continue after discharge. Plan okay with me for discharge with oncology follow-up. Local care to PEG tube site. He should follow up with primary care after discharge I can see as needed. Subjective Date/time seen: 05/23/20 11:00 Objective Data Vital Signs Vital Signs: Vital Signs - 24 hr 05/22/20 11:32 05/22/20 11:42 05/22/20 11:52 Temperature Pulse Rate 99 96 98 Respiratory Rate 29 H 25 H 23 H Blood Pressure 103/72 141/89 H 149/90 H Pulse Oximetry 100 100 100 05/22/20 14:00 05/22/20 21:00 05/22/20 22:03 Temperature 98.0 F 98.2 F Pulse Rate 104 H 68 68 Respiratory Rate 18 16 16 Blood Pressure 154/79 H 131/78 Pulse Oximetry 100 98 98 05/23/20 06:00 Temperature 99.4 F Pulse Rate 98 Respiratory Rate 20 Blood Pressure 128/83 Pulse Oximetry 100 Intake/Output Intake/Output: Intake & Output 05/20/20 05/21/20 05/22/20 05/23/20 23:59 23:59 23:59 23:59 Intake Total 760 850 440 Output Total 600 Balance 760 250 440 Meds/Results Medications: Active Medications Generic Name Dose Route Start Last Admin Trade Name Freq PRN Reason Stop Dose Admin Acetaminophen 500 mg 05/20/20 17:33 05/22/20 18:36 Tylenol Elixir PO 500 mg Q4H PRN Administration PAIN 1-3 Albuterol 2 puff 05/16/20 20:13 Proventil Hfa INHALATION QID PRN Shortness Of Breath Or Wheezing Amlodipine Besylate 10 mg 05/17/20 09:00 05/23/20 10:51 Norvasc PO 10 mg DAILY [facility] Administration Aspirin 81 mg 05/17/20 09:00 05/23/20 10:52 Aspirin Chewable PO 81 mg DAILY [facility] Administration Clopidogrel Bisulfate 75 mg 05/17/20 09:00 05/23/20 10:52 Plavix PO 75 mg DAILY [facility] Administration Docusate Sodium 100 mg 05/20/20 17:00 05/23/20 10:56 Colace Liquid PO Not Given BID [facility] Famotidine 20 mg 05/16/20 17:00 05/23/20 10:51 Pepcid PO 20 mg BID [facility] Administration Gabapentin 300 mg 05/17/20 09:00 05/23/20 10:51 Neurontin PO 300 mg 0900,1200 [facility] Administration Gabapentin 600 mg 05/16/20 18:00 05/22/20 18:38 Neurontin PO Not Given 1800 [facility] Lansoprazole 30 mg 05/23/20 06:30 05/23/20 06:08 Prevacid Susp FEED TUBE 30 mg DAILY@0630 [facility] Administration Multivitamins/Minerals 15 ml 05/21/20 09:00 05/23/20 10:51 Centrum Liquid PO 15 ml QAM [facility] Administration Ondansetron HCl 4 mg 05/16/20 20:13 05/19/20 02:15 Zofran Odt PO 4 mg Q8H PRN Administration Nausea And Vomiting Oxycodone HCl 10 mg 05/16/20 20:13 05/17/20 08:53 Roxicodone Ir Tablet PO 10 mg Q3H PRN Administration Breakthrough Pain Oxycodone HCl 5 mg 05/16/20 21:41 05/19/20 02:15 Roxicodone Ir Tablet PO 5 mg Q6H PRN Administration Pain Rated 6 or Greater Oxycodone/Acetaminophen 1 tablet 05/16/20 20:13 05/17/20 15:23 Percocet 5-325 Mg PO 1 tablet Q6H PRN Administration Pain Rated 6 or Greater Polyethylene Glycol 17 gm 05/17/20 09:00 05/23/20 10:52 Miralax PO 17 gm DAILY [facility] Administration Rosuvastatin Calcium 10 mg 05/16/20 21:00 05/22/20 22:09 Crestor PO 10 mg HS [facility] Administration
--- NOTE | 2020-05-23 14:52 | PCOTNOTE ---
Mr. Beyer was evaluated for a drop arm commode on 05/23/10 by this occupational therapist. The drop arm commode will resolve that patient?s self-care limitations and will be used for ADL?s within the home. The patient is unable to stand safely for completion of stand pivot transfer to a standard commode or toilet due to bilateral below knee amputations. The patient can safely and independently complete transfer to/from wheelchair to a drop arm commode and is independent with toilet hygiene and clothing management while seated on commode. The patient's daughter has participated in family training and exhibits good understanding of safety and use of drop arm commode. I agree with and certify that the above recommendation is medically necessary. Referring Physician Date
[2020-05-23] MEDS: DOCUSATE SODIUM LIQ 100 MG/10 ML UDC PO (17:17)
[2020-05-23] MEDS: ROSUVASTATIN 10 MG TABLET PO (20:37)
[2020-05-23 22:00] VITALS: BP 135/77; PULSE 110; RESP 18; TEMP 37.3; O2SAT 98
[2020-05-24 04:37] LABS: Basophils Percent Auto 0.2 % (0.2-1.2); Eosinophils Percent Auto 0.2 % (0-4.4); Hematocrit 30.1 % (42.0-52.0); Hemoglobin 9.8 g/dL (14.0-18.0); Immature Granulocyte Absolute 0.07 K/mm3 (0.00-0.031); Immature Granulocyte Percent A 0.5 % (0-0.5); Lymphocytes Absolute Auto 2.09 K/mm3 (0.9-3.2); Mean Corpuscular HGB Conc 32.6 g/dl (32-36); Mean Corpuscular Hemoglobin 25.8 pg (26-34); Mean Corpuscular Volume 79.2 fl (80-100); Mean Platelet Volume 9.4 fl (7.4-10.4); Monocytes Absolute Auto 1.1 K/mm3 (0.1-0.6); Monocytes Percent Auto 8.6 % (2.6-8.5); Neutrophils Absolute Auto 9.7 K/mm3 (1.3-6.7); Neutrophils Percent Auto 74.5 % (45.5-73.1); Platelet Count Result 415 k/mm3 (150-375); Red Cell Distribution Width 19.7 % (11.5-14.5); White Blood Count 13.1 K/mm3 (4.5-10.0)
[2020-05-24 04:54] LABS: Anion Gap 9 mmol/L (8-16); Blood Urea Nitrogen 18 mg/dL (9-20); Calcium 9.9 mg/dL (8.4-10.2); Carbon Dioxide 26 mmol/L (22-30); Chloride 93 mmol/L (98-107); Estimated Glomerular Filt Rate > 60; Glucose 138 mg/dL (75-110); Potassium 3.8 mmol/L (3.4-5.0); Sodium 128 mmol/L (137-145)
[2020-05-24] MEDS: LANSOPRAZOLE ORAL SUSP 30 MG/10 ML ORAL.SUSP FEED TUBE (05:49)
[2020-05-24 06:06] VITALS: BP 133/76; PULSE 69; RESP 14; TEMP 36.5; O2SAT 97
--- NOTE | 2020-05-24 07:43 | WPDGIPROGNO ---
Progress Note: A&P Additional Plan Patient alert and comfortable this morning. Tolerating small amounts of liquid orally. Also tolerating tube feedings at an adequate rate via at PEG tube. Physical exam reveals abdomen soft. Peg tube site healing well. impression 1. Peg tube. Plan to continue local care to PEG tube site after discharge. Home health to check on patient after discharge to answer any questions. 2. Esophageal cancer. Patient to follow-up with oncology after discharge. Anticipate chemo and radiation therapy to start soon. PET scan likely be required. 3. Bilateral BKA. Rehab per Dr Hook. It is okay with me for discharge when other services agree. Subjective Date/time seen: 05/24/20 07:43 Objective Data Vital Signs Vital Signs: Vital Signs - 24 hr 05/23/20 10:40 05/23/20 22:00 05/24/20 06:06 Temperature 99.1 F 97.7 F Pulse Rate 94 110 H 69 Respiratory Rate 18 18 14 Blood Pressure 135/77 133/76 Pulse Oximetry 100 98 97 Intake/Output Intake/Output: Intake & Output 05/21/20 05/22/20 05/23/20 05/24/20 23:59 23:59 23:59 23:59 Intake Total 850 440 Output Total 600 Balance 250 440 Meds/Results Medications: Active Medications Generic Name Dose Route Start Last Admin Trade Name Freq PRN Reason Stop Dose Admin Acetaminophen 500 mg 05/20/20 17:33 05/22/20 18:36 Tylenol Elixir PO 500 mg Q4H PRN Administration PAIN 1-3 Albuterol 2 puff 05/16/20 20:13 Proventil Hfa INHALATION QID PRN Shortness Of Breath Or Wheezing Amlodipine Besylate 10 mg 05/17/20 09:00 05/23/20 10:51 Norvasc PO 10 mg DAILY [facility] Administration Aspirin 81 mg 05/17/20 09:00 05/23/20 10:52 Aspirin Chewable PO 81 mg DAILY [facility] Administration Clopidogrel Bisulfate 75 mg 05/17/20 09:00 05/23/20 10:52 Plavix PO 75 mg DAILY [facility] Administration Docusate Sodium 100 mg 05/20/20 17:00 05/23/20 17:17 Colace Liquid PO 100 mg BID [facility] Administration Famotidine 20 mg 05/16/20 17:00 05/23/20 17:17 Pepcid PO 20 mg BID [facility] Administration Gabapentin 300 mg 05/17/20 09:00 05/23/20 12:52 Neurontin PO Not Given 0900,1200 [facility] Gabapentin 600 mg 05/16/20 18:00 05/23/20 17:18 Neurontin PO Not Given 1800 [facility] Lansoprazole 30 mg 05/23/20 06:30 05/24/20 05:49 Prevacid Susp FEED TUBE 30 mg DAILY@0630 [facility] Administration Multivitamins/Minerals 15 ml 05/21/20 09:00 05/23/20 10:51 Centrum Liquid PO 15 ml QAM [facility] Administration Ondansetron HCl 4 mg 05/16/20 20:13 05/19/20 02:15 Zofran Odt PO 4 mg Q8H PRN Administration Nausea And Vomiting Oxycodone HCl 10 mg 05/16/20 20:13 05/17/20 08:53 Roxicodone Ir Tablet PO 10 mg Q3H PRN Administration Breakthrough Pain Oxycodone HCl 5 mg 05/16/20 21:41 05/19/20 02:15 Roxicodone Ir Tablet PO 5 mg Q6H PRN Administration Pain Rated 6 or Greater Oxycodone/Acetaminophen 1 tablet 05/16/20 20:13 05/17/20 15:23 Percocet 5-325 Mg PO 1 tablet Q6H PRN Administration Pain Rated 6 or Greater Polyethylene Glycol 17 gm 05/17/20 09:00 05/23/20 10:52 Miralax PO 17 gm DAILY [facility] Administration Rosuvastatin Calcium 10 mg 05/16/20 21:00 05/23/20 20:37 Crestor PO 10 mg HS [facility] Administration Radiology Results: ITS Impressions Chest CT 05/20/20 12:43 IMPRESSION: 1. Esophageal mass, consistent with primary malignancy. No evidence of metastatic disease. Labs Labs: Laboratory Results - last 24 hr 05/24/20 05/24/20 04:27 04:27 WBC 13.1 H RBC 3.80 L Hgb 9.8 L Hct 30.1 L MCV 79.2 L MCH 25.8 L MCHC 32.6 RDW 19.7 H Plt Count 415 H MPV 9.4 Immature Gran % (Auto) 0.5 Neut % (Auto) 74.5 H Lymph % (Auto) 16.0 L Sawyer % (Auto) 8.6 H Eos % (Auto) 0.2 Baso % (Auto) 0.2 Lymph # (Auto) 2.09 Sawyer # (Auto) 1.1 H Eos # (Auto) 0.0 Baso # (A
[2020-05-24] MEDS: MULTIVIT W/ IRON, MINERALS 15 ML LIQUID (*BKC) PO (09:29)
--- NOTE | 2020-05-24 09:40 | PCDIET ---
Nutrition Follow-Up Complete: Predicted suboptimal oral intake related to decreased appetite as evidenced by patient statements and reported poor intake prior to admission. Total intake will meet estimated kcal and protein needs Goal:Goal met, continue goal Pt current nutrition is clear liquids + Jevity 1.5 at 55ml/hr with 30ml flush q 4hrs + clear liquids. Nutrition recommendation: Change EN due to fluid overload, and desire to keep clear liquids PO due to patient satisfaction Last recorded weight is 48.8 kg (recommend updated wt) Bowel Motility: No BM (Mirada and colace on board) Labs Reviewed:05/24 Na 128, Glucose 138 Meds Noted: Norvasc, colace, pepcid, zofran, mtv, miralax, oxycodone Additional Notes: Pt had 50% intake on Wednesday of liquid diet. RN state pt is enjoying liquid diet but no other PO intake documented. Na is low at 128 and I/O balance today is +440ml. Fluid restrictions being added per RN. No BM. Pt not taking pain meds often per RN. Motility agents on board and hopefully as we get PO intake moving, bowels will follow. No bowel discomfort or distention at this time. Discussed with RN to change EN to TwoCal HN to allow pt to continue to get clear liquids while still reducing total fluid intake. Diet changed to TwoCal HN at 40ml/hr over 22hrs to provide 1760kcasl, 73g protein, and 616ml fo fluid vs 919ml of fluid with Jevity 1.5. We will follow for tolerance, wt, labs every T/F.
[2020-05-24] MEDS: polyethylene glycoL 3350 17 GM POWD.PACK PO (09:56)
[2020-05-24] MEDS: amLODIPine BESYLATE 5 MG TABLET 10 MG PO (09:57)
[2020-05-24] MEDS: FAMOTIDINE 20 MG TABLET PO ×2 (09:57→18:19)
[2020-05-24] MEDS: DOCUSATE SODIUM LIQ 100 MG/10 ML UDC PO ×2 (09:57→18:20)
[2020-05-24] MEDS: CLOPIDOGREL BISULFATE 75 MG TABLET PO (09:57)
[2020-05-24] MEDS: ASPIRIN 81 MG CHEWABLE TABLET PO (09:57)
[2020-05-24] MEDS: ACETAMINOPHEN ELIXIR 325 MG/10.15 ML UDC 500 MG PO ×2 (09:58→18:21)
--- NOTE | 2020-05-24 11:58 | WPDNEURORHBP ---
Subjective Date/time seen: 05/24/20 11:58 Interval history: this 59-year-old gentleman is here after having had recent left BKA and old right BKA Here in our hospital the patient has been diagnosed with esophageal cancer for which she will need a follow-up with the oncologist he has a PEG placed and doing fairly well however his hemoglobin hematocrit is dropping down and white count is relatively elevated we will observe he denies any headache nausea vomiting chest pain shortness of breath fever chills sore throat Review of Systems Review of Systems: All systems reviewed & are unremarkable except as noted in HPI and below Functional Status Transfers Ability Ability to Transfer In/Out of Chair: Independent Exam Const: General: comfortable and no acute distress HENMT: General nose exam: Normal nares present Mouth: Yes moist mucous membranes Eyes: General: appearance normal, both eyes and all related structures Neck: Neck: supple and no JVD Resp: Effort & Inspection: normal respiratory effort Auscultation: clear to auscultation bilaterally Cardio: Rate: regular rate Rhythm: regular rhythm GI: GI Palp: Yes Soft to palpation Auscultation: normal bowel sounds Skin: General skin exam: normal color and no rashes or lesions noted Neuro: Other: patient is awake alert well oriented not any distress doing well in the rehab in spite of the fact that he has bilateral BKA but cooperative and making progress Extrem: Other: the recent BKA is clean and healthy likewise the previous right-sided BKA is also clean stump Psych: Mental Status: mental status grossly normal Objective Data Vital Signs Vital Signs: Vital Signs - 24 hr 05/23/20 22:00 05/24/20 06:06 Temperature 37.3 C 36.5 C Pulse Rate 110 H 69 Respiratory Rate 18 14 Blood Pressure 135/77 133/76 Pulse Oximetry 98 97 Intake/Output Intake/Output: Intake & Output 05/21/20 05/22/20 05/23/20 05/24/20 23:59 23:59 23:59 23:59 Intake Total 850 440 Output Total 600 Balance 250 440 Meds/Results Medications: Active Medications Generic Name Dose Route Start Last Admin Trade Name Freq PRN Reason Stop Dose Admin Acetaminophen 500 mg 05/20/20 17:33 05/24/20 09:58 Tylenol Elixir PO 500 mg Q4H PRN Administration PAIN 1-3 Albuterol 2 puff 05/16/20 20:13 Proventil Hfa INHALATION QID PRN Shortness Of Breath Or Wheezing Amlodipine Besylate 10 mg 05/17/20 09:00 05/24/20 09:57 Norvasc PO 10 mg DAILY [facility] Administration Aspirin 81 mg 05/17/20 09:00 05/24/20 09:57 Aspirin Chewable PO 81 mg DAILY [facility] Administration Clopidogrel Bisulfate 75 mg 05/17/20 09:00 05/24/20 09:57 Plavix PO 75 mg DAILY [facility] Administration Docusate Sodium 100 mg 05/20/20 17:00 05/24/20 09:57 Colace Liquid PO 100 mg BID [facility] Administration Famotidine 20 mg 05/16/20 17:00 05/24/20 09:57 Pepcid PO 20 mg BID [facility] Administration Lansoprazole 30 mg 05/23/20 06:30 05/24/20 05:49 Prevacid Susp FEED TUBE 30 mg DAILY@0630 [facility] Administration Multivitamins/Minerals 15 ml 05/21/20 09:00 05/24/20 09:29 Centrum Liquid PO 15 ml QAM [facility] Administration Ondansetron HCl 4 mg 05/16/20 20:13 05/19/20 02:15 Zofran Odt PO 4 mg Q8H PRN Administration Nausea And Vomiting Oxycodone HCl 10 mg 05/16/20 20:13 05/17/20 08:53 Roxicodone Ir Tablet PO 10 mg Q3H PRN Administration Breakthrough Pain Oxycodone HCl 5 mg 05/16/20 21:41 05/19/20 02:15 Roxicodone Ir Tablet PO 5 mg Q6H PRN Administration Pain Rated 6 or Greater Oxycodone/Acetaminophen 1 tablet 05/16/20 20:13 05/17/20 15:23 Percocet 5-325 Mg PO 1 tablet Q6H PRN Administration Pain Rated 6 or Greater Polyethylene Glycol 17 gm 05/17/20 09:00 05/24/20 09:56 Miralax PO 17 gm DAILY [facility] Administration Rosuvastatin Calcium 10 mg 05/16/20 21:00 05/23/20 20:37 Crestor
[2020-05-24 12:33] LABS: Hepatitis C Viral RNA PCR <15 IU/mL
[2020-05-24 14:00] VITALS: BP 140/63; PULSE 94; RESP 20; TEMP 36.7; O2SAT 100
--- NOTE | 2020-05-24 17:13 | PC.NURSE ---
Spoke with dietary today and tube feeding is changed to two-dona to allow more free water for flushes and po comfort, Bonifacio is tolerating tube feeds well. no diarrhea or constipation
[2020-05-24] MEDS: ROSUVASTATIN 10 MG TABLET PO (20:22)
[2020-05-24 21:20] VITALS: BP 124/72; PULSE 101; RESP 22; TEMP 37.6; O2SAT 100
--- NOTE | 2020-05-24 21:41 | PC.NURSE ---
tf advanced at 1999 35cc/hr to 40cc/hr
[2020-05-25 05:49] VITALS: BP 117/57; PULSE 101; RESP 22; TEMP 37.7; O2SAT 100
[2020-05-25] MEDS: LANSOPRAZOLE ORAL SUSP 30 MG/10 ML ORAL.SUSP FEED TUBE (06:08)
[2020-05-25] MEDS: ACETAMINOPHEN ELIXIR 325 MG/10.15 ML UDC 500 MG PO (06:08)
[2020-05-25] MEDS: CLOPIDOGREL BISULFATE 75 MG TABLET PO (08:44)
[2020-05-25] MEDS: amLODIPine BESYLATE 5 MG TABLET 10 MG PO (08:44)
[2020-05-25] MEDS: ASPIRIN 81 MG CHEWABLE TABLET PO (08:44)
[2020-05-25] MEDS: FAMOTIDINE 20 MG TABLET PO ×2 (08:44→18:45)
[2020-05-25] MEDS: polyethylene glycoL 3350 17 GM POWD.PACK PO (08:45)
[2020-05-25] MEDS: MULTIVIT W/ IRON, MINERALS 15 ML LIQUID (*BKC) PO (08:45)
[2020-05-25] MEDS: DOCUSATE SODIUM LIQ 100 MG/10 ML UDC PO ×2 (08:45→18:45)
[2020-05-25] MEDS: oxyCODONE HCL (*CRX) 5 MG TAB IR 10 MG PO (08:46)
--- NOTE | 2020-05-25 12:33 | WPDNEURORHBP ---
Subjective Date/time seen: 05/25/20 12:33 59 years old with left below-knee amputation in addition to the history of peripheral arterial disease, hypertension, hypercholesterolemia, chronic obstructive pulmonary disease, GERD disease, hepatitis C. 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 has also been seen by the oncologist with documentation of no metastases but will be followed by the oncologist for the possible chemo and radiation therapy at present receiving PEG tube and feeding Review of Systems Review of Systems: All systems reviewed & are unremarkable except as noted in HPI and below Functional Status Transfers Ability Ability to Transfer In/Out of Chair: Standby Assistance Exam Narrative: Exam Narrative: examination reveals him to be awake alert cooperative ear nose throat examination normal neck is supple heart regular lungs clear abdomen soft nontender normal bowel sounds neurologically awake alert cranial nerves examination is normal reflexes in upper extremities symmetrical bilateral BKA but no acute changes in the strength Objective Data Vital Signs Vital Signs: Vital Signs - 24 hr 05/24/20 14:00 05/24/20 21:20 05/25/20 05:49 Temperature 36.7 C 37.6 C 37.7 C H Pulse Rate 94 101 H 101 H Respiratory Rate 20 22 H 22 H Blood Pressure 140/63 124/72 117/57 L Pulse Oximetry 100 100 100 Intake/Output Intake/Output: Intake & Output 05/22/20 05/23/20 05/24/20 05/25/20 23:59 23:59 23:59 23:59 Intake Total 440 870 Output Total 400 Balance 440 470 Meds/Results Medications: Active Medications Generic Name Dose Route Start Last Admin Trade Name Freq PRN Reason Stop Dose Admin Acetaminophen 500 mg 05/20/20 17:33 05/25/20 06:08 Tylenol Elixir PO 500 mg Q4H PRN Administration PAIN 1-3 Albuterol 2 puff 05/16/20 20:13 Proventil Hfa INHALATION QID PRN Shortness Of Breath Or Wheezing Amlodipine Besylate 10 mg 05/17/20 09:00 05/25/20 08:44 Norvasc PO 10 mg DAILY PHYLLIS Administration Aspirin 81 mg 05/17/20 09:00 05/25/20 08:44 Aspirin Chewable PO 81 mg DAILY PHYLLIS Administration Clopidogrel Bisulfate 75 mg 05/17/20 09:00 05/25/20 08:44 Plavix PO 75 mg DAILY PHYLLIS Administration Docusate Sodium 100 mg 05/20/20 17:00 05/25/20 08:45 Colace Liquid PO 100 mg BID PHYLLIS Administration Famotidine 20 mg 05/16/20 17:00 05/25/20 08:44 Pepcid PO 20 mg BID PHYLLIS Administration Lansoprazole 30 mg 05/23/20 06:30 05/25/20 06:08 Prevacid Susp FEED TUBE 30 mg DAILY@0630 [facility] Administration Multivitamins/Minerals 15 ml 05/21/20 09:00 05/25/20 08:45 Centrum Liquid PO 15 ml QAM PHYLLIS Administration Ondansetron HCl 4 mg 05/16/20 20:13 05/19/20 02:15 Zofran Odt PO 4 mg Q8H PRN Administration Nausea And Vomiting Oxycodone HCl 10 mg 05/16/20 20:13 05/25/20 08:46 Roxicodone Ir Tablet PO 10 mg Q3H PRN Administration Breakthrough Pain Oxycodone HCl 5 mg 05/16/20 21:41 05/19/20 02:15 Roxicodone Ir Tablet PO 5 mg Q6H PRN Administration Pain Rated 6 or Greater Oxycodone/Acetaminophen 1 tablet 05/16/20 20:13 05/17/20 15:23 Percocet 5-325 Mg PO 1 tablet Q6H PRN Administration Pain Rated 6 or Greater Polyethylene Glycol 17 gm 05/17/20 09:00 05/25/20 08:45 Miralax PO 17 gm DAILY PHYLLIS Administration Rosuvastatin Calcium 10 mg 05/16/20 21:00 05/24/20 20:22 Crestor PO 10 mg HS PHYLLIS Administration Radiology Results: ITS Impressions Chest CT 05/20/20 12:43 IMPRESSION: 1. Esophageal mass, consistent with primary malignancy. No evidence of metastatic disease. Labs Labs: Laboratory Results - last 24 hr 05/21/20 09:51 HCV RNA (PCR) IUs/ml <15 HCV RNA PCR log IUs/ml <1.18 Hep C Genotype (PCR)
[2020-05-25 14:00] VITALS: BP 117/60; PULSE 81; RESP 18; TEMP 36.9; O2SAT 99
[2020-05-25] MEDS: oxyCODONE/ACETAMINOPHEN (*CRX) 5-325 MG TABLET 1 TABLET PO (14:17)
[2020-05-25] MEDS: ROSUVASTATIN 10 MG TABLET PO (20:12)
[2020-05-25 20:57] VITALS: BP 124/62; PULSE 100; RESP 22; TEMP 37.7; O2SAT 100
[2020-05-26 05:12] VITALS: BP 101/80; PULSE 102; RESP 22; TEMP 37.1; O2SAT 100
[2020-05-26] MEDS: LANSOPRAZOLE ORAL SUSP 30 MG/10 ML ORAL.SUSP FEED TUBE (05:49)
[2020-05-26] MEDS: MULTIVIT W/ IRON, MINERALS 15 ML LIQUID (*BKC) PO (10:01)
[2020-05-26] MEDS: polyethylene glycoL 3350 17 GM POWD.PACK PO (10:01)
[2020-05-26] MEDS: DOCUSATE SODIUM LIQ 100 MG/10 ML UDC PO ×2 (10:01→18:51)
[2020-05-26] MEDS: FAMOTIDINE 20 MG TABLET PO ×2 (10:02→18:51)
[2020-05-26] MEDS: amLODIPine BESYLATE 5 MG TABLET 10 MG PO (10:02)
[2020-05-26] MEDS: oxyCODONE/ACETAMINOPHEN (*CRX) 5-325 MG TABLET 1 TABLET PO ×2 (10:02→22:55)
[2020-05-26] MEDS: ASPIRIN 81 MG CHEWABLE TABLET PO (10:02)
[2020-05-26] MEDS: CLOPIDOGREL BISULFATE 75 MG TABLET PO (10:02)
[2020-05-26 14:00] VITALS: BP 117/73; PULSE 96; RESP 20; TEMP 36.2; O2SAT 99
--- NOTE | 2020-05-26 17:18 | PC.NURSE ---
WBC elevated and Sodium is low at 128. Dr. Frank aware, and elevation may be related to esophageal mass and sodium may be related to intake. He is on 2 dona, but is not consuming his clear liquid diet. He wanted me to consult poultry farm supervisor, so left message.
[2020-05-26 22:00] VITALS: BP 119/59; PULSE 101; RESP 16; TEMP 37.6; O2SAT 100
[2020-05-26] MEDS: oxyCODONE HCL (*CRX) 5 MG TAB IR PO (22:55)
[2020-05-26] MEDS: ROSUVASTATIN 10 MG TABLET PO (22:57)
[2020-05-27 05:16] LABS: Basophils Percent Auto 0.4 % (0.2-1.2); Eosinophils Absolute Auto 0.1 K/mm3 (0-0.3); Eosinophils Percent Auto 0.7 % (0-4.4); Hematocrit 25.7 % (42.0-52.0); Hemoglobin 8.2 g/dL (14.0-18.0); Immature Granulocyte Absolute 0.03 K/mm3 (0.00-0.031); Immature Granulocyte Percent A 0.3 % (0-0.5); Lymphocytes Percent Auto 19.3 % (18.3-44.2); Mean Corpuscular HGB Conc 31.9 g/dl (32-36); Mean Corpuscular Hemoglobin 25.6 pg (26-34); Mean Corpuscular Volume 80.3 fl (80-100); Mean Platelet Volume 9.5 fl (7.4-10.4); Monocytes Absolute Auto 1.2 K/mm3 (0.1-0.6); Monocytes Percent Auto 12.3 % (2.6-8.5); Neutrophils Absolute Auto 6.3 K/mm3 (1.3-6.7); Platelet Count Result 354 k/mm3 (150-375); Red Cell Distribution Width 19.9 % (11.5-14.5); White Blood Count 9.3 K/mm3 (4.5-10.0)
[2020-05-27 05:29] LABS: Anion Gap 9 mmol/L (8-16); Blood Urea Nitrogen 20 mg/dL (9-20); Calcium 10.1 mg/dL (8.4-10.2); Carbon Dioxide 30 mmol/L (22-30); Chloride 93 mmol/L (98-107); Estimated Glomerular Filt Rate > 60; Glucose 114 mg/dL (75-110); Sodium 132 mmol/L (137-145)
[2020-05-27 06:00] VITALS: BP 140/58; PULSE 96; RESP 16; TEMP 36.7; O2SAT 100
[2020-05-27] MEDS: CLOPIDOGREL BISULFATE 75 MG TABLET FEED TUBE (10:35)
[2020-05-27] MEDS: amLODIPine BESYLATE 5 MG TABLET 10 MG FEED TUBE (10:35)
[2020-05-27] MEDS: DOCUSATE SODIUM LIQ 100 MG/10 ML UDC FEED TUBE ×2 (10:36→18:33)
[2020-05-27] MEDS: MULTIVIT W/ IRON, MINERALS 15 ML LIQUID (*BKC) FEED TUBE (10:36)
[2020-05-27] MEDS: polyethylene glycoL 3350 17 GM POWD.PACK FEED TUBE (10:37)
[2020-05-27] MEDS: FAMOTIDINE 20 MG TABLET FEED TUBE ×2 (10:42→18:34)
[2020-05-27] MEDS: ASPIRIN 81 MG CHEWABLE TABLET FEED TUBE (10:42)
--- NOTE | 2020-05-27 12:12 | WPDNEURORHBP ---
Subjective Date/time seen: 05/27/20 12:12 59 years old with left below the knee amputation in addition to the history of peripheral arterial disease, hypertension, hypercholesterolemia, chronic obstructive pulmonary disease, GERD, hepatitis-C. 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 He is to follow-up with the oncologist subsequent to discharge from here to start the chemotherapy Review of Systems Review of Systems: All systems reviewed & are unremarkable except as noted in HPI and below Functional Status Transfers Ability Ability to Transfer In/Out of Chair: Standby Assistance Exam Narrative: Exam Narrative: on examination he is awake alert cooperative in no obvious acute distress speech is not dysphasic no dysarthric not dysphonic is able to follow the instruction very well heart is regular lungs clear with no rhonchi or crepitation abdomen is soft neurological examination revealed him to have no drift of 1 or other upper extremity obviously he has [id number] amputation Objective Data Vital Signs Vital Signs: Vital Signs - 24 hr 05/26/20 14:00 05/26/20 22:00 05/27/20 06:00 Temperature 36.2 C L 37.6 C 36.7 C Pulse Rate 96 101 H 96 Respiratory Rate 20 16 16 Blood Pressure 117/73 119/59 L 140/58 L Pulse Oximetry 99 100 100 Intake/Output Intake/Output: Intake & Output 05/24/20 05/25/20 05/26/20 05/27/20 23:59 23:59 23:59 23:59 Intake Total 1230 920 100 Output Total 400 600 500 Balance 830 320 -400 Meds/Results Medications: Active Medications Generic Name Dose Route Start Last Admin Trade Name Freq PRN Reason Stop Dose Admin Acetaminophen 500 mg 05/20/20 17:33 05/25/20 06:08 Tylenol Elixir PO 500 mg Q4H PRN Administration PAIN 1-3 Albuterol 2 puff 05/16/20 20:13 Proventil Hfa INHALATION QID PRN Shortness Of Breath Or Wheezing Amlodipine Besylate 10 mg 05/27/20 09:00 05/27/20 10:35 Norvasc FEED TUBE 10 mg DAILY PHYLLIS Administration Aspirin 81 mg 05/27/20 09:00 05/27/20 10:42 Aspirin Chewable FEED TUBE 81 mg DAILY PHYLLIS Administration Clopidogrel Bisulfate 75 mg 05/27/20 09:00 05/27/20 10:35 Plavix FEED TUBE 75 mg DAILY PHYLLIS Administration Docusate Sodium 100 mg 05/27/20 09:00 05/27/20 10:36 Colace Liquid FEED TUBE 100 mg BID PHYLLIS Administration Famotidine 20 mg 05/27/20 09:00 05/27/20 10:42 Pepcid FEED TUBE 20 mg BID PHYLLIS Administration Lansoprazole 30 mg 05/23/20 06:30 05/26/20 05:49 Prevacid Susp FEED TUBE 30 mg DAILY@0630 [facility] Administration Multivitamins/Minerals 15 ml 05/27/20 09:00 05/27/20 10:36 Centrum Liquid FEED TUBE 15 ml QAM [facility] Administration Ondansetron HCl 4 mg 05/16/20 20:13 05/19/20 02:15 Zofran Odt PO 4 mg Q8H PRN Administration Nausea And Vomiting Oxycodone HCl 5 mg 05/27/20 08:42 Roxicodone Ir Tablet FEED TUBE Q6H PRN Pain Rated 6 or Greater Oxycodone HCl 10 mg 05/27/20 08:42 Roxicodone Ir Tablet FEED TUBE Q3H PRN Breakthrough Pain Oxycodone/Acetaminophen 1 tablet 05/27/20 08:42 Percocet 5-325 Mg FEED TUBE Q6H PRN Pain Rated 6 or Greater Polyethylene Glycol 17 gm 05/27/20 09:00 05/27/20 10:37 Miralax FEED TUBE 17 gm DAILY [facility] Administration Rosuvastatin Calcium 10 mg 05/27/20 21:00 Crestor FEED TUBE [facility] Radiology Results: ITS Impressions Chest CT 05/20/20 12:43 IMPRESSION: 1. Esophageal mass, consistent with primary malignancy. No evidence of metastatic disease. Labs Labs: Laboratory Results - last 24 hr 05/27/20 05/27/20 05:01 05:01 WBC 9.3 RBC 3.20 L Hgb 8.2 L Hct 25.7 L MCV 80.3 MCH 25.6 L MCHC 31.9 L RDW 19.9 H Plt Count 354 MPV 9.5 Immature Gran % (Auto) 0.3 Neut % (Auto) 67.0 Lym
--- NOTE | 2020-05-27 12:41 | PCPTNOTE ---
HOSPITAL BED NOTE Mr. Beyer was evaluated for a hospital bed on 05-27-2020 by this physical therapist. The hospital bed will resolve patient's mobility limitations and assist with proper positioning for tube feeding .The patient's home can accommodate the hospital bed according to patient. An electric hospital bed will assist to ensure optimal positioning for tube feeding needs. Balbina Antoine PT ?
--- NOTE | 2020-05-27 13:19 | PCPTNOTE ---
Mr. Beyer was seen for PT but short 15 minutes due to refusal for further activities with reported fatigue and general malaise. Nursing notified. Balbina Antoine PT
[2020-05-27 14:00] VITALS: BP 106/64; PULSE 88; RESP 16; TEMP 37.1; O2SAT 100
--- NOTE | 2020-05-27 14:12 | PCDIET ---
Nutrition Follow-Up Complete: Nutrition Diagnosis: Predicted suboptimal oral intake related to decreased appetite as evidenced by patient statements and reported poor intake prior to admission. Nutrition Goal: Patient to meet estimated needs. Goal met. Patient has been tolerating Two Otis HN at 40mL/hr goal rate. Denies GI c/o on visit. Early follow up due to message left on phone by nursing over weekend with concern for hyponatremia (which has since improved). Recommend continuing present tube feeding/flush. Last recorded weight is 48.8 kg. Recommend obtaining new weight. Bowel Motility: +BM today. Labs Reviewed: Hgb (8.2), Hct (25.7), Glu (114), Na (132) Meds Noted: Centrum, Albuterol, Zofran, Colace, Roxicodone, Pepcid, Miralax Additional Notes: Dressing to left leg amputation site. No documented pressure ulcers. Will continue to monitor with same goal. Nutrition Monitoring and Evaluation: Follow up every Wednesday/Wednesday.
[2020-05-27 21:29] VITALS: BP 96/62; PULSE 108; RESP 20; TEMP 37.1; O2SAT 100
[2020-05-27] MEDS: ROSUVASTATIN 10 MG TABLET FEED TUBE (22:17)
[2020-05-27] MEDS: oxyCODONE HCL (*CRX) 5 MG TAB IR FEED TUBE (22:17)
[2020-05-27] MEDS: oxyCODONE/ACETAMINOPHEN (*CRX) 5-325 MG TABLET 1 TABLET FEED TUBE (22:17)
[2020-05-28 05:10] VITALS: BP 94/65; PULSE 107; RESP 18; TEMP 36.6; O2SAT 100
[2020-05-28] MEDS: LANSOPRAZOLE ORAL SUSP 30 MG/10 ML ORAL.SUSP FEED TUBE (05:42)
[2020-05-28] MEDS: MULTIVIT W/ IRON, MINERALS 15 ML LIQUID (*BKC) FEED TUBE (09:01)
[2020-05-28] MEDS: DOCUSATE SODIUM LIQ 100 MG/10 ML UDC FEED TUBE ×2 (09:01→17:25)
[2020-05-28] MEDS: polyethylene glycoL 3350 17 GM POWD.PACK FEED TUBE (09:01)
[2020-05-28] MEDS: FAMOTIDINE 20 MG TABLET FEED TUBE ×2 (09:02→17:26)
[2020-05-28] MEDS: oxyCODONE/ACETAMINOPHEN (*CRX) 5-325 MG TABLET 1 TABLET FEED TUBE ×2 (09:02→20:26)
[2020-05-28] MEDS: CLOPIDOGREL BISULFATE 75 MG TABLET FEED TUBE (09:03)
[2020-05-28] MEDS: ASPIRIN 81 MG CHEWABLE TABLET FEED TUBE (09:03)
[2020-05-28] MEDS: amLODIPine BESYLATE 5 MG TABLET 10 MG FEED TUBE (09:03)
--- NOTE | 2020-05-28 10:29 | PCOTNOTE ---
Mr. Beyer was evaluated for a shower seat with back on 05/28/10 by this occupational therapist. The shower seat with back will resolve that patient?s self-care limitations and will be used for bathing within the home. The patient is unable to stand safely for completion of bathing in shower due to bilateral below knee amputations and will require a seat for bathing. The patient can safely and independently complete bathing from a shower chair. The patient's daughter has participated in family training and exhibits good understanding of safety and use of shower seat with back. I agree with and certify that the above recommendation is medically necessary. Referring Physician Date
--- NOTE | 2020-05-28 11:43 | PCDIET ---
Nutrition Follow-Up Complete: Nutrition Diagnosis: Predicted suboptimal oral intake related to decreased appetite as evidenced by patient statements and reported poor intake prior to admission. Nutrition Goal: Patient to meet estimated nutritional needs. Goal met. Patient tolerating Two Otis HN at 40mL/hr goal rate which provides 36kcal/kg given 22 hour daily infusion. Taking very little by mouth on clear liquid diet. Last recorded weight is 48.8 kg. Recommend obtaining new weight. Bowel Motility: Last documented BM on 05/27/20. Labs Reviewed: Hgb (8.2), Hct (25.7), Glu (114), Cr (0.4), Na (132) Meds Noted: Centrum, Prevacid, Albuterol, Norvasc, Colace, Pepcid, Roxicodone, Miralax Additional Notes: Left leg incision with dressing. No documented pressure sores. Will continue to monitor with same goal. Nutrition Monitoring and Evaluation: Follow up every Wednesday/Wednesday.
[2020-05-28] MEDS: oxyCODONE HCL (*CRX) 5 MG TAB IR FEED TUBE ×2 (13:20→20:26)
[2020-05-28 14:00] VITALS: BP 100/62; PULSE 108; RESP 16; TEMP 36.7; O2SAT 100
--- NOTE | 2020-05-28 14:08 | WPDNEURORHBP ---
Subjective Date/time seen: 05/28/20 14:08 Interval history: this 59-year-old Afro-[place] gentleman is here is status post BKA and new found esophageal cancer for which PEG tube was placed the patient is to follow-up with the oncologist for the ultimate treatment for the esophageal cancer and the workup prior to that the notes of the oncologist were reviewed the case was discussed in over team conference this morning with the daughter available via telephone. Patient is tolerating the PEG tube for tube feeding fairly well PEG tube side is good he has progressed very well in the PT and OT and will be discharged tomorrow he denies any headache nausea vomiting chest pain shortness of breath fever chills sore throat Review of Systems Review of Systems: All systems reviewed & are unremarkable except as noted in HPI and below Functional Status Transfers Ability Ability to Transfer In/Out of Chair: Standby Assistance Exam Const: General: comfortable and no acute distress HENMT: General nose exam: Normal nares present Mouth: Yes moist mucous membranes Eyes: General: appearance normal, both eyes and all related structures Neck: Neck: supple and no JVD Resp: Effort & Inspection: normal respiratory effort Auscultation: clear to auscultation bilaterally Cardio: Rate: regular rate Rhythm: regular rhythm GI: GI Palp: Yes Soft to palpation Auscultation: normal bowel sounds Other: the PEG tube is functioning well Skin: General skin exam: normal color and no rashes or lesions noted Neuro: Other: patient is awake alert well oriented in good spirits has made progress he has basically become bilateral BKA the 1 done recently for which he came here and the other 1 had prior to that Extrem: Other: the BKA is clean and healthy Psych: Mental Status: mental status grossly normal Objective Data Vital Signs Vital Signs: Vital Signs - 24 hr 05/27/20 21:29 05/28/20 05:10 Temperature 37.1 C 36.6 C Pulse Rate 108 H 107 H Respiratory Rate 20 18 Blood Pressure 96/62 L 94/65 L Pulse Oximetry 100 100 Intake/Output Intake/Output: Intake & Output 05/25/20 05/26/20 05/27/20 05/28/20 23:59 23:59 23:59 23:59 Intake Total 1230 920 100 Output Total 400 600 500 Balance 830 320 -400 Meds/Results Medications: Active Medications Generic Name Dose Route Start Last Admin Trade Name Freq PRN Reason Stop Dose Admin Acetaminophen 500 mg 05/20/20 17:33 05/25/20 06:08 Tylenol Elixir PO 500 mg Q4H PRN Administration PAIN 1-3 Albuterol 2 puff 05/16/20 20:13 Proventil Hfa INHALATION QID PRN Shortness Of Breath Or Wheezing Amlodipine Besylate 10 mg 05/27/20 09:00 05/28/20 09:03 Norvasc FEED TUBE 10 mg DAILY PHYLLIS Administration Aspirin 81 mg 05/27/20 09:00 05/28/20 09:03 Aspirin Chewable FEED TUBE 81 mg DAILY PHYLLIS Administration Clopidogrel Bisulfate 75 mg 05/27/20 09:00 05/28/20 09:03 Plavix FEED TUBE 75 mg DAILY [facility] Administration Docusate Sodium 100 mg 05/27/20 09:00 05/28/20 09:01 Colace Liquid FEED TUBE 100 mg BID PHYLLIS Administration Famotidine 20 mg 05/27/20 09:00 05/28/20 09:02 Pepcid FEED TUBE 20 mg BID PHYLLIS Administration Lansoprazole 30 mg 05/23/20 06:30 05/28/20 05:42 Prevacid Susp FEED TUBE 30 mg DAILY@0630 [facility] Administration Multivitamins/Minerals 15 ml 05/27/20 09:00 05/28/20 09:01 Centrum Liquid FEED TUBE 15 ml QAM [facility] Administration Ondansetron HCl 4 mg 05/16/20 20:13 05/19/20 02:15 Zofran Odt PO 4 mg Q8H PRN Administration Nausea And Vomiting Oxycodone HCl 5 mg 05/27/20 08:42 05/28/20 13:20 Roxicodone Ir Tablet FEED TUBE 5 mg Q6H PRN Administration Pain Rated 6 or Greater Oxycodone HCl 10 mg 05/27/20 08:42 Roxicodone Ir Tablet FEED TUBE Q3H PRN Breakthrough Pain Oxycodone/Acetaminophen 1 tablet 05/27/20 08:42 05/28/20 09:02 Percocet 5-325 Mg FEED
[2020-05-28] MEDS: ROSUVASTATIN 10 MG TABLET FEED TUBE (20:26)
[2020-05-28 21:15] VITALS: BP 92/55; PULSE 109; RESP 20; TEMP 36.4; O2SAT 100
[2020-05-29 06:00] VITALS: BP 101/59; PULSE 101; RESP 20; TEMP 37.4; O2SAT 100
[2020-05-29] MEDS: LANSOPRAZOLE ORAL SUSP 30 MG/10 ML ORAL.SUSP FEED TUBE (06:05)
[2020-05-29] MEDS: ASPIRIN 81 MG CHEWABLE TABLET FEED TUBE (08:39)
[2020-05-29] MEDS: amLODIPine BESYLATE 5 MG TABLET 10 MG FEED TUBE (08:39)
[2020-05-29] MEDS: CLOPIDOGREL BISULFATE 75 MG TABLET FEED TUBE (08:39)
[2020-05-29] MEDS: DOCUSATE SODIUM LIQ 100 MG/10 ML UDC FEED TUBE (08:39)
[2020-05-29] MEDS: polyethylene glycoL 3350 17 GM POWD.PACK FEED TUBE (08:40)
[2020-05-29] MEDS: MULTIVIT W/ IRON, MINERALS 15 ML LIQUID (*BKC) FEED TUBE (08:40)
[2020-05-29] MEDS: FAMOTIDINE 20 MG TABLET FEED TUBE (08:40)
--- NOTE | 2020-05-31 14:25 | PM.DS ---
DS: Admitting Diagnosis Admitting Diagnosis Admitting Diagnosis: L BKA DS: Discharge Diagnosis Discharge Diagnosis (1) Esophageal cancer: Code(s): C15.9 - Malignant neoplasm of esophagus, unspecified Status: Acute (2) Vomiting: Code(s): R11.10 - Vomiting, unspecified Status: Acute (3) Dysphagia: Code(s): R13.10 - Dysphagia, unspecified Status: Acute (4) Esophageal stricture: Code(s): K22.2 - Esophageal obstruction Status: Acute (5) Neuropathic pain: Code(s): M79.2 - Neuralgia and neuritis, unspecified Status: Acute (6) Ischemic leg pain: Code(s): M79.606 - Pain in leg, unspecified; I99.8 - Other disorder of circulatory system Status: Acute (7) Acute blood loss anemia: Code(s): D62 - Acute posthemorrhagic anemia Status: Acute (8) Hypertension: Code(s): I10 - Essential (primary) hypertension Status: Acute (9) Hepatitis C: Code(s): B19.20 - Unspecified viral hepatitis C without hepatic coma Status: Acute (10) Peripheral vascular disease: Code(s): I73.9 - Peripheral vascular disease, unspecified Status: Acute (11) Complete below-knee amputation of right lower extremity: Code(s): S88.111A - Complete traumatic amputation at level between knee and ankle, right lower leg, initial encounter Status: Acute (12) Complete below-knee amputation of left lower extremity: Code(s): S88.112A - Complete traumatic amputation at level between knee and ankle, left lower leg, initial encounter Status: Acute DS: Summary Hospital Course Reason for hospitalization: the patient was admitted because of multiple medical issues after having had [id number] amputation and became bilateral amputee during the course of hospitalization he had to have a GI consult because of his several months history of dysphagia and ultimately turned out to have esophageal cancer because of that the patient had PEG tube placement by our machine heel builder and the patient has to have follow-up with the oncologist to make the definitive Harris for his esophageal cancer for which the patient is quite ready to have it during the course of hospitalization the patient see the medical management of his underlying medical issues the nausea and vomiting cleared after having had the PEG tube placement and he was tolerating the the liquids fairly well after the PEG tube placement he was able to achieve the following independent measures during the course of hospitalization Hospital Course: eating independent, oral hygiene independent, toileting independent, bathing setup, upper body dressing setup, lower body dressing set up, footwear not applicable because of bilateral [id number] amputation, rolling in bed independent sitting to lying independent, lying to sitting independent, sit to stand supervision, chair transfers independent, toilet transfers independent, car transfers set up, walking 10 feet patient was unable to walking 50 feet with 2 turns patient was unable to walking 150 feet patient was unable to walking 10 feet on uneven surfaces patient is unable to curb her set up for steps 12 steps patient was unable to picking of object patient was unable to wheelchair 50 feet independent wheelchair and 50 feet independent patient was sent home with home health to follow and follow-up instructions were given the to follow up with the multiple physicians including the primary care Time Spent with Patient Time attestation: Total time spent providing and/or coordinating discharge services: Exam Const: General: comfortable and no acute distress HENMT: General nose exam: Normal nares present Mouth: Yes dry mucous membranes Eyes: General: appearance normal, both eyes and all related structures Neck: Neck: supple and no JVD Resp: Effort & Inspection: normal respiratory effort Auscultation: clear to auscultation bilaterally Cardio: R
== END 2020-05-29 14:58 | disposition home health service (06) | DRG 560 ==
PROVIDERS: Internal Medicine Gastroenterology; Internal Medicine Hematology & Oncology; Admitting Provider Psychiatry & Neurology Neurology; PCP Internal Medicine; Visit Provider Psychiatry & Neurology Neurology
PROC: 0DJ08ZZ Inspection of Upper Intestinal Tract, Via Natural or Artificial Opening Endoscopic (ICD-10-PCS; CPT 43235; principal; 2020-05-20 10:00)
PROC: 0DH63UZ Insertion of Feeding Device into Stomach, Percutaneous Approach (ICD-10-PCS; CPT 43246; principal; 2020-05-22 11:00)
DX: Z47.81 Encounter for orthopedic aftercare following surgical amputation (principal); C15.5 Malignant neoplasm of lower third of esophagus; D62 Acute posthemorrhagic anemia; E87.1 Hypo-osmolality and hyponatremia; K59.00 Constipation, unspecified; Z89.512 Acquired absence of left leg below knee; B19.20 Unspecified viral hepatitis C without hepatic coma; E78.00 Pure hypercholesterolemia, unspecified; F17.290 Nicotine dependence, other tobacco product, uncomplicated; I10 Essential (primary) hypertension; J44.9 Chronic obstructive pulmonary disease, unspecified; Z89.511 Acquired absence of right leg below knee; I99.8 Other disorder of circulatory system; I73.9 Peripheral vascular disease, unspecified; K22.2 Esophageal obstruction; R13.10 Dysphagia, unspecified
CPT/HCPCS: 36415; 43246; 71260; 80048; 80076; 82607; 82728; 83540; 83550; 85025; 85610; 85730; 87522; 88305; 88342; 97110; 97116; 97162; 97165; 97530; 97535; 97542; A9270; C9113; J1756; J2001; J2704; J3420; J7050; J7120; Q9967

== ENCOUNTER 2020-06-10 01:30 | Outpatient (CLI) | payer OTHER, SELFPAY ==
[2020-06-10 18:16] LABS: SARS-CoV-2 RNA PCR Negative
== END 2020-06-10 01:31 | disposition home or self-care (01) ==
LOC: ANHCOVIDDT 01:30
PROVIDERS: Visit Provider Surgery
DX: Z01.812 Encounter for preprocedural laboratory examination (principal); Z20.828 Contact with and (suspected) exposure to other viral communicable diseases
CPT/HCPCS: 36415; 85025; 87635; 93005; C9803; U0003

== ENCOUNTER 2020-06-10 07:55 | Outpatient (CLI) | payer OTHER, SELFPAY ==
--- NOTE | 2020-06-10 08:00 | ECG_ITS ---
Measurements Intervals [place] Rate: 98 P: 73 KS: 142 QRS: 58 QRSD: 93 T: 77 QT: 338 QTc: 432 Interpretive Statements SINUS RHYTHM VOLTAGE CRITERIA FOR LVH PEAKED T WAVES- CONSIDER HYPERKALEMIA OR ISCHEMIA BASELINE ARTIFACT- II, III, AVR, AVL, AVF, V1-V6 ABNORMAL ECG Electronically Signed On 06-10-2020 8:37:10 CDT by Sang Santiago D.O.
[2020-06-10 09:03] LABS: Basophils Percent Auto 0.4 % (0.2-1.2); Eosinophils Absolute Auto 0.1 K/mm3 (0-0.3); Eosinophils Percent Auto 0.5 % (0-4.4); Hematocrit 30.3 % (42.0-52.0); Hemoglobin 9.6 g/dL (14.0-18.0); Immature Granulocyte Absolute 0.04 K/mm3 (0.00-0.031); Immature Granulocyte Percent A 0.4 % (0-0.5); Lymphocytes Absolute Auto 1.96 K/mm3 (0.9-3.2); Lymphocytes Percent Auto 20.2 % (18.3-44.2); Mean Corpuscular HGB Conc 31.7 g/dl (32-36); Mean Corpuscular Hemoglobin 26.9 pg (26-34); Mean Corpuscular Volume 84.9 fl (80-100); Mean Platelet Volume 9.7 fl (7.4-10.4); Monocytes Percent Auto 9.9 % (2.6-8.5); Neutrophils Absolute Auto 6.7 K/mm3 (1.3-6.7); Neutrophils Percent Auto 68.6 % (45.5-73.1); Platelet Count Result 422 k/mm3 (150-375); Red Blood Count 3.57 M/mm3 (4.6-6.20); Red Cell Distribution Width 17.9 % (11.5-14.5); White Blood Count 9.7 K/mm3 (4.5-10.0)
== END 2020-06-10 07:56 | disposition home or self-care (01) ==
PROVIDERS: Visit Provider Surgery
DX: Z01.810 Encounter for preprocedural cardiovascular examination (principal); E78.5 Hyperlipidemia, unspecified; C15.9 Malignant neoplasm of esophagus, unspecified
CPT/HCPCS: 36415; 85025; 93005

== ENCOUNTER 2020-06-12 02:23 | Day surgery (SDC) | payer OTHER, SELFPAY ==
[2020-06-04 08:56] VITALS: BMI 13.9
--- NOTE | ~2020-06-12 | XR_ITS ---
EXAMINATION: XR chest port-a-cath/central EXAM DATE: 06/12/2020 16:02 INDICATION: Aquilino catheter insertion. Postoperative. Esophageal mass. TECHNIQUE: Portable AP frontal chest x-ray was obtained. There is no prior study for comparison. FINDINGS: The lungs are hyperinflated which can be seen with chronic obstructive pulmonary disease (a clinical diagnosis of functional impairment), but is not diagnostic of it. There is a right-sided po rtacatheter is in expected position. No evidence of postprocedure pneumothorax. Cardiomediastinal dayday houette is normal. There are no pleural effusions. There is no focal acute air space disease. There i s aortic arteriosclerosis. Old right rib fractures. IMPRESSION: 1. No postprocedure pneumothorax. 2. Moderate hyperinflation Reviewed, dictated and finalized at location A.
--- NOTE | ~2020-06-12 | XR_ITS ---
EXAMINATION: XR fl guide central line place DATE: 06/12/2020 15:47 INDICATION: Right-sided port catheter placement TECHNIQUE: Angled frontal fluoroscopic spot image of the mid right chest was obtained during procedur e performed by Dr. Feldman. Radiologist was not present for the imaging or procedure. The amount of f luoroscopy time used during this procedure was 0.7 minutes. COMPARISON: None. FINDINGS/IMPRESSION: Right internal jugular central venous port catheter with distal tip projecting o jose the right superior cavoatrial junction. See procedure note for further detail. Reviewed, dictated and finalized at location B.
--- NOTE | 2020-06-12 09:09 | PM.HPGS ---
History of Present Illness History of Present Illness Consent: Risks, benefits, and alternatives of placement of a Port-A-Cath have been discussed and questions answered. Patient agrees to proceed with procedure. 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 Patient has had a PEG tube placed for nutrition and now will be undergoing chemotherapy associated with radiation therapy to this tumor. Since he will be needing chemotherapy high been asked to place a Port-A-Cath for him. Risks including bleeding infection possible a need to remove the port if it becomes infected have been described. Review of Systems Constitutional: Constitutional: Reports no additional constitutional complaints, Reports fatigue and Denies malaise Eyes: Eyes: Denies change in vision and Denies loss of vision ENT: Reports Normal hearing present, Denies change in voice, Denies dizziness, Denies hoarseness and Denies sore throat Cardiovascular: Cardiovascular: Denies chest pain, Denies leg edema and Denies dyspnea Comments: Known severe lower extremity peripheral vascular disease Respiratory: Respiratory: Denies cough, Denies dyspnea and Denies wheezing Gastrointestinal: Gastrointestinal: Denies hematochezia, Denies change in bowel habits and Denies heartburn Comments: Known mass at the distal esophagus. now with PEG tube in place. Genitourinary: Genitourinary: Denies urinary frequency and Denies urinary incontinence Musculoskeletal: Comments: Previous bilateral [id number] amputations for peripheral vascular disease Neurologic: Reports Normal hearing present, Denies confusion, Denies dizziness, Denies loss of vision, Denies memory loss and Denies seizure-like activity Psychiatric: Psychiatric: Denies confusion, Denies depression and Denies memory loss Endocrine: Endocrine: Denies cold intolerance and Reports fatigue Hematologic/Lymphatic: Hematologic/Lymphatic: Denies easy bleeding and Denies easy bruising Allergic/Immunologic: Allergic/Immunologic: Denies wheezing PMFSH Past Medical History Medical History Cancer of distal third of esophagus Dysphagia Esophageal stricture Hepatitis C Hypertension Ischemic leg pain Neuropathic pain Family History Family History Other Unknown family medical history Social History Social History Smoking packs per day: 0.5 Smoking cigarettes per day: 10.0 Years smoked: 40 Smoking pack-years: 20.00 Smoking status: Former smoker Tobacco type: cigarettes Smoking end date: 05/09/20 Additional smoking assessment comments: QUIT 04/2020 Alcohol intake: current Drinks per week: 4 Substance use: never Substance use type: does not use Gender identity (if verbalized by the patient): Male Spiritual care concerns: No Meds Home Medications and Allergies Home Medications Medication Instructions Recorded Confirmed Type Jevity 1.5 55 milliliter/hour #1 ea 05/23/20 06/06/20 Rx hospital bed #1 ea 05/27/20 06/06/20 Rx wheelchair #1 ea 05/27/20 06/06/20 Rx amlodipine [Norvasc] 10 mg FEEDING TUBE DAILY #30 tablet 05/28/20 06/06/20 Rx aspirin [Children's Aspirin] 81 mg FEEDING TUBE DAILY #0 tablet 05/28/20 06/06/20 Rx clopidogrel 75 mg FEEDING TUBE DAILY #30 tablet 05/28/20 06/06/20 Rx docusate sodium 100 mg FEEDING TUBE BID #300 ml 05/28/20 06/06/20 Rx drop arm commode #1 ea 05/28/20 06/06/20 Rx famotidine 20 mg FEEDING TUBE BID #60 tablet 05/28/20 06/06/20 Rx oxycodone 10 mg FEEDING TUBE Q3H PRN #60 05/28/20 06/06/20 Rx tablet rosuvastatin [Crestor] 10 mg FEEDING TUBE HS #30 tablet 05/28/20 06/06/20 Rx sliding board #1 ea 05/28/20 06/06/20 Rx tub seat with back #1 ea
[2020-06-12 12:33] VITALS: BP 127/83; PULSE 106; RESP 20; TEMP 36.4; O2SAT 100
[2020-06-12] MEDS: LACTATED RINGERS 1,000 ML 30 ML IV CONT (12:56)
--- NOTE | 2020-06-12 13:18 | WPDANESEPPF ---
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 Patient Data Age: 59 Gender: M Height: 5 ft 11 in Weight: 41.6 kg Last Vital Signs Temp 36.4 C 06/12/20 12:33 Pulse 106 H 06/12/20 12:33 Resp 20 06/12/20 12:33 BP 127/83 06/12/20 12:33 Pulse Ox 100 06/12/20 12:33 Allergies Allergy/AdvReac Type Severity Reaction Status Date / Time No Known Allergies Allergy Verified 06/12/20 13:00 Home Medications Medication Instructions Recorded Confirmed Type Jevity 1.5 55 milliliter/hour #1 05/23/20 06/06/20 Rx hospital bed #1 ea 05/27/20 06/06/20 Rx wheelchair #1 deon 05/27/20 06/06/20 Rx amlodipine [Norvasc] 10 mg FEEDING TUBE DAILY #30 tablet 05/28/20 06/06/20 Rx aspirin [Children's Aspirin] 81 mg FEEDING TUBE DAILY #0 tablet 05/28/20 06/06/20 Rx clopidogrel 75 mg FEEDING TUBE DAILY #30 tablet 05/28/20 06/06/20 Rx docusate sodium 100 mg FEEDING TUBE BID #300 ml 05/28/20 06/06/20 Rx drop arm commode #1 ea 05/28/20 06/06/20 Rx famotidine 20 mg FEEDING TUBE BID #60 tablet 05/28/20 06/06/20 Rx oxycodone 10 mg FEEDING TUBE Q3H PRN #60 05/28/20 06/06/20 Rx tablet rosuvastatin [Crestor] 10 mg FEEDING TUBE HS #30 tablet 05/28/20 06/06/20 Rx sliding board #1 deon 05/28/20 06/06/20 Rx tub seat with back #1 ea 05/28/20 06/06/20 Rx two ca lHNat 40 ml/hour/continuous #1 ea 05/28/20 06/06/20 Rx albuterol sulfate 2.5 mg INHALATION Q4H PRN 06/04/20 06/06/20 History polyethylene glycol 3350 [Miralax] 17 g FEEDING TUBE DAILY PRN 06/04/20 06/06/20 History Patient hx anesthesia problems: none Family hx anesthesia problems: none PMFSH Past Medical History Medical History Cancer of distal third of esophagus Dysphagia Esophageal stricture Hepatitis C Hypertension Ischemic leg pain Neuropathic pain Family History Family History Other Unknown family medical history Social History Social History Smoking packs per day: 0.5 Smoking cigarettes per day: 10.0 Years smoked: 40 Smoking pack-years: 20.00 Smoking status: Former smoker Tobacco type: cigarettes Smoking end date: 05/09/20 Additional smoking assessment comments: QUIT 04/2020 Alcohol intake: current Drinks per week: 4 Substance use: never Substance use type: does not use Gender identity (if verbalized by the patient): Male Spiritual care concerns: No Anes - Eval Final PreProcedure Day of Procedure 06/12/20 13:18 Patient weight: thin Heart: regular rate and rhythm Lungs: clear to auscultation Airway: Mallampati scale class II Neurological: alert and oriented Last oral intake: >/= 8 hours ASA classification: IV Emergent: no Anesthesia type and monitoring: general GIVS and standard monitoring Informed Consent: The patient's anesthetic plan and its attendant risks and benefits were discussed with the patient/family/POA. Questions were solicited and answers provided to the satisfaction of the patient/family/POA.
--- NOTE | 2020-06-12 14:32 | WPDHPUPDATE1 ---
History and Physical Update Update Date/Time: 06/12/20 14:32 History and Physical has been reviewed, including an updated exam of the patient. There are NO changes in the patient's condition. Risks, benefits, and alternatives have been discussed and questions answered. Patient agrees to proceed with procedure.
[2020-06-12] MEDS: ceFAZolin 2 GM/D5W 50 ML 2 GM/50 ML BAG IVPB (14:46)
[2020-06-12] MEDS: BUPIVACAINE/EPINEPHRINE 0.5% 10 ML VIAL INFILTRATE (15:13)
[2020-06-12] MEDS: HEPARIN SODIUM 5,000 UNITS/ML VIAL 5000 UNITS IRRIGATION (15:14)
--- NOTE | 2020-06-12 15:39 | PM.PROC ---
Procedure Note - Detailed Date of procedure: 06/12/20 Pre-op diagnosis: Cancer of Distal Third of Esophagus Post-op diagnosis: same Procedure performed: US guided placement of Port-A-Cath Description of procedure: Patient was seen and marked in the pre-op area prior to coming to the OR. Patient was brought to the operating room. He was placed supine on the operating table and general IV sedation was induced. The nurse web offset press feeder provided oxygen and IV sedation. Patient's head was carefully turned to the left side while in the supine position and the patient's entire neck and anterior chest on both sides was prepped and draped in the usual sterile fashion. Following this the appropriate time-out was completed confirming procedure and patient. We confirmed that all the needed equipment was present in the room. Following this the ultrasound probe was draped into the field and using the probe we carefully identified the carotid artery and jugular vein on the right neck. I marked the skin directly over the Rt. internal jugular vein. Following this, using the continuous ultrasound guidance, a Cook needle was placed through the skin into this vein with the first stick. I then was able to draw back good dark blood. Once this was completed a guidewire using a J-tip was advanced through the needle and then the needle and the guidewire cover were withdrawn. C-arm fluoroscopy was used to confirm that the guidewire was nicely in the venous system. Once this was confirmed with the C - arm I preceded on by making the pocket for the port on the patient's anterior right chest approximately 3 centimeters below the clavicle overlying the chest wall. Local anesthetic was infiltrated into the skin where there was a transverse incision marked out. Incision was made and we made a pocket inferior to the incision with just a little dissection superior. The Bard low-profile port was tried in the pocket and seemed to fit well. Following this the catheter which had been placed on a tunneling device was tunneled from the port site on the anterior right chest up to the right neck where a small incision had been made with an #11 blade knife. Then the catheter was pulled through so that we would have 15 centimeters to put into the central venous system once the dilation took place. Following this we placed the dilator and sheath over the guidewire in the jugular vein and carefully dilated the tract into the central venous system. The guidewire and dilator were then removed, carefully covering the end of the sheath to prevent air embolus. The end of the catheter which had been cut off straight across and the tip checked was then inserted into the sheath and into the neck. I then carefully pulled the 2 arms of the tear-away sheath away as the fire assistant held the catheter in position with a DeBakey forceps. Following this we checked the position of the catheter with C-arm fluoroscopy confirming that the tip seemed to be in the distal superior vena cava near the junction with the right atrium. I felt that it was in good position and so the rest of the catheter was pulled down toward the feet into the port site. We then measured to the appropriate position to cut the catheter to attach it to the port stem. Then the connector sealing device for the catheter port was placed onto the catheter and then the catheter cut to the appropriate length and inserted onto the stem of the port. Then the connector was advanced onto the stem over the catheter sealing it to the port. A single 3- 0 Prolene suture was also used during this to suture the connector to the port and to the underlying musculature. Following this at one other site the port was sutured to the underlying musculature with the 3-0 Proline. Both prior to connecting the catheter to the port and then using a straight Swann needle following this connection, the port was aspirated of good dark blood and flushed with heparinized saline to keep t
[2020-06-12 15:45] VITALS: BP 128/75; PULSE 89; RESP 18; O2SAT 100
[2020-06-12 16:10] VITALS: BP 134/71; PULSE 84; RESP 20; O2SAT 100
[2020-06-12 16:40] VITALS: BP 136/74; PULSE 83; RESP 18
--- NOTE | 2020-06-12 16:52 | SUR.PHASEII ---
1550- chest xray done. Dr Feldman made aware.
== END 2020-06-12 16:50 | disposition home or self-care (01) ==
PROVIDERS: Visit Provider Surgery
PROC: (CPT 36561; principal; 2020-06-12 14:00)
DX: C15.5 Malignant neoplasm of lower third of esophagus (principal); I10 Essential (primary) hypertension; G62.9 Polyneuropathy, unspecified; Z79.02 Long term (current) use of antithrombotics/antiplatelets; Z79.82 Long term (current) use of aspirin; Z86.19 Personal history of other infectious and parasitic diseases; Z87.891 Personal history of nicotine dependence
CPT/HCPCS: 36561; 77001; C1788; J0690; J1644; J2250; J2405; J2704; J3010; J7030; J7120

== ENCOUNTER 2020-07-04 07:30 | Outpatient (RCR) | payer OTHER, SELFPAY ==
[2020-06-03] VITALS (9 sets, daily range): BP systolic 106–136; BP diastolic 65–76; PULSE 95–110; RESP 14–16; TEMP 36.6–37.2; O2SAT 100
[2020-06-03 07:50] LABS: Hematocrit 18.3 % (42.0-52.0); Hemoglobin 5.4 g/dL (14.0-18.0)
[2020-06-03] MEDS: ACETAMINOPHEN ELIXIR 325 MG/10.15 ML UDC 650 MG PO (09:43)
[2020-06-03] MEDS: diphenhydrAMINE HCL ELIXIR 12.5 MG/5 ML UDC 25 MG PO (09:44)
[2020-07-04] VITALS (8 sets, daily range): BP systolic 116–126; BP diastolic 71–88; PULSE 88–98; RESP 16–20; TEMP 37.1–37.2; O2SAT 99–100
[2020-07-04 08:01] LABS: Hematocrit 27.1 % (42.0-52.0); Hemoglobin 8.5 g/dL (14.0-18.0); Mean Corpuscular HGB Conc 31.4 g/dl (32-36); Mean Corpuscular Hemoglobin 25.8 pg (26-34); Mean Corpuscular Volume 82.4 fl (80-100); Mean Platelet Volume 9.1 fl (7.4-10.4); Platelet Count Result 334 k/mm3 (150-375); Red Blood Count 3.29 M/mm3 (4.6-6.20); Red Cell Distribution Width 17.7 % (11.5-14.5); White Blood Count 4.8 K/mm3 (4.5-10.0)
[2020-07-04] MEDS: SODIUM CHLORIDE 0.9% IV 250 ML 30 ML IV CONT (09:35)
[2020-07-04] MEDS: HEPARIN SOD FLUSH 500 UNITS/5 ML SYRINGE (14:55)
== END 2020-09-01 23:59 | disposition home or self-care (01) ==
LOC: ANHCPCTRAN 07:30
PROVIDERS: Visit Provider Internal Medicine Hematology & Oncology
DX: C15.5 Malignant neoplasm of lower third of esophagus (principal)
CPT/HCPCS: 36415; 36430; 85014; 85018; 85027; 86850; 86900; 86901; 86923; A9270; J7050; P9016

== ENCOUNTER 2020-08-20 09:10 | Outpatient (CLI) | payer OTHER, SELFPAY ==
--- NOTE | ~2020-08-20 | CT_ITS ---
EXAMINATION: CTA chest PE protocol DATE: 08/20/2020 09:39 INDICATION: Chest pain TECHNIQUE: Computed tomography angiography (CTA) of the chest was performed with 100 mL Omnipaque-350 intravenous contrast timed to evaluate the pulmonary arteries. Coronal maximum intensity projection 3D-reconstructions were created by the technologist. The dose-length product (DLP) was 156.35 mGy-cm. Automated exposure control and iterative reconstruction technique were employed. COMPARISON: 05/20/2020 FINDINGS: The pulmonary arteries are well-opacified. No pulmonary embolism is identified. The previou sly described distal esophageal mass persists with interval decrease in esophageal wall thickening. A right internal jugular Port-A-Cath ends with its tip at the distal superior vena cava. There is emph ysema and scarring of the right lung apex. There is no pleural effusion or pneumothorax. No pathologi nimisha enlarged thoracic lymph nodes are identified. The heart size is normal. There is mild thoracic spondylosis. IMPRESSION: 1. No pulmonary embolism or acute cardiopulmonary abnormality. 2. Decrease in distal esophageal wall thickening, consistent with treatment response. Reviewed, dictated and finalized at location A. 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 No pulmonary embolism or acute cardiopulmonary abnormality. 2. Decrease in distal esophageal wall thickening, consistent with treatment res ponse.
== END 2020-08-20 09:11 | disposition home or self-care (01) ==
PROVIDERS: Visit Provider Internal Medicine Hematology & Oncology
DX: R79.89 Other specified abnormal findings of blood chemistry (principal); R07.1 Chest pain on breathing
CPT/HCPCS: 71275; 77386; Q9967

== ENCOUNTER 2020-09-18 11:34 | Emergency (ER) | payer OTHER, SELFPAY ==
--- NOTE | ~2020-09-18 | CT_ITS ---
EXAMINATION: CT abdomen pelvis w con EXAM DATE: 09/18/2020 13:01 INDICATION: Left lower quadrant pain. TECHNIQUE: Spiral CT of the abdomen and pelvis was performed following intravenous injection of 100 m L Omnipaque 350. Axial, coronal and sagittal images were reviewed. The dose-length product (DLP) fo r this examination was 178.97 mGy-cm. The exposure was tailored according to patient size (auto mA e xposure control), and iterative reconstruction (ASIR) was used as additional dose reduction technique . Correlation is made to CT pulmonary scan 08/20/2020. FINDINGS: There is a gastrostomy tube with gastric antral edema suspected, gastritis. There is severe distal esophageal wall edema, esophagitis most likely. Finding was present on prior CT pulmonary sca n. IVC filter. The liver, spleen, adrenal glands and pancreas are unremarkable. Gallbladder is unre markable. No biliary obstruction. Portal and splenic veins are patent. Kidneys enhance symmetrical ly. There is no hydronephrosis. The prostate is unremarkable. The bladder is unremarkable. There is no retroperitoneal or pelvic lymphadenopathy. There is moderate to severe scattered arterioscle rotic disease. The appendix is normal. The stomach and small bowel are unremarkable. There is moderate amount of c olonic stool. No free intraperitoneal gas. The heart is normal in size. There are no pericardial or pleural effusions. The lung bases are unremarkable. There are no osteoblastic or osteolytic les ions identified. IMPRESSION: Findings consistent with gastritis/peptic ulcer disease and esophagitis. Reviewed, dictated and finalized at location A. 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
--- NOTE | ~2020-09-18 | XR_ITS ---
EXAMINATION: XR chest 2V DATE: 09/18/2020 12:19 INDICATION: Chest pain. TECHNIQUE: Frontal and lateral views of the chest were obtained. COMPARISON: Chest single view 06/12/2020, chest CT 08/20/2020 FINDINGS: The lungs are hyperexpanded with lucencies, consistent with emphysema. No pleural effusion or pneumothorax. The heart size is normal. There are old healed right rib fractures. There is a right internal jugular port with tip in superior vena cava. IMPRESSION: 1. Emphysema. Reviewed, dictated and finalized at location B. D [employer] IMPRESSION: 1. Emphysema.
[2020-09-18 11:31] VITALS: BP 105/82; PULSE 117; RESP 19; TEMP 37.1; O2SAT 100
--- NOTE | 2020-09-18 11:38 | ECG_ITS ---
Measurements Intervals [place] Rate: 120 P: -6 CT: 120 QRS: -12 QRSD: 84 T: 75 QT: 298 QTc: 423 Interpretive Statements SINUS TACHYCARDIA ATRIAL PREMATURE COMPLEX VOLTAGE CRITERIA FOR LVH ABNORMAL ECG Electronically Signed On 09-18-2020 11:52:48 MOTOR VEHICLE LIGHT ASSEMBLER by Sang Santiago D.O.
[2020-09-18 11:50] LABS: Basophils Percent Auto 0.4 % (0.2-1.2); Hematocrit 33.7 % (42.0-52.0); Hemoglobin 11.1 g/dL (14.0-18.0); Immature Granulocyte Absolute 0.01 K/mm3 (0.00-0.031); Immature Granulocyte Percent A 0.2 % (0-0.5); Lymphocytes Absolute Auto 1.43 K/mm3 (0.9-3.2); Lymphocytes Percent Auto 28.7 % (18.3-44.2); Mean Corpuscular HGB Conc 32.9 g/dl (32-36); Mean Corpuscular Hemoglobin 30.1 pg (26-34); Mean Corpuscular Volume 91.3 fl (80-100); Monocytes Absolute Auto 0.8 K/mm3 (0.1-0.6); Monocytes Percent Auto 15.7 % (2.6-8.5); Neutrophils Absolute Auto 2.7 K/mm3 (1.3-6.7); Platelet Count Result 124 k/mm3 (150-375); Red Blood Count 3.69 M/mm3 (4.6-6.20); Red Cell Distribution Width 16.7 % (11.5-14.5)
[2020-09-18 11:57] VITALS: PULSE 120
[2020-09-18 12:02] LABS: Anion Gap 3 mmol/L (8-16); Blood Urea Nitrogen 14 mg/dL (9-20); Calcium 9.4 mg/dL (8.4-10.2); Carbon Dioxide 29 mmol/L (22-30); Chloride 99 mmol/L (98-107); Estimated Glomerular Filt Rate > 60; Glucose 109 mg/dL (75-110); Prothrombin Time 13.6 Seconds (11.1-14.7); Sodium 131 mmol/L (137-145)
[2020-09-18 12:03] LABS: Partial Thromboplastin Time 33.2 SECONDS (22.3-36.8)
[2020-09-18 12:14] LABS: Troponin I < 0.012 ng/mL (0.000-0.034)
[2020-09-18] MEDS: MORPHINE SULFATE (*CRX) 4 MG/ML INJ IV PUSH (12:28)
[2020-09-18] MEDS: SODIUM CHLORIDE 0.9% IV 1,000 ML 999 ML IV CONT ×2 (12:28→14:39)
[2020-09-18 12:45] VITALS: BP 129/89; PULSE 119; RESP 18; O2SAT 98
[2020-09-18 13:45] VITALS: BP 102/77; PULSE 114; RESP 22; O2SAT 99
--- NOTE | 2020-09-18 14:02 | ED.GENADULT ---
HPI - General Adult General Chief complaint: Chest Pain Stated complaint: CP Time Seen by Provider: 09/18/20 11:38 History of Present Illness HPI narrative: Patient is a 60-year-old male with history of esophageal cancer who presents to the ER with abdominal pain. Patient reports he is over at the infusion center to get a dose of chemotherapy which she has been unable to get over the last month due to having low platelets. Reports during screening questions he told him that he is having some abdominal pain and they sent him here for further evaluation. He reports its burning and up near his G-tube site note radiates up in towards his chest. Feels similar to reflux he has had in the past. Denies actual chest pain or exertional discomfort. Patient also is reporting lower abdominal cramping but has had normal bowel movements and passage of gas. No distention of the abdomen. Patient takes aspirin and Plavix. Has history of PE. No shortness of breath. No hypoxia Related Data Home Medications Medication Instructions Recorded Confirmed albuterol sulfate 2.5 mg INHALATION Q4H PRN 06/04/20 08/26/20 polyethylene glycol 3350 [Miralax] 17 g FEEDING TUBE TID PRN 06/04/20 08/26/20 Allergies Allergy/AdvReac Type Severity Reaction Status Date / Time No Known Allergies Allergy Verified 09/18/20 12:10 Review of Systems Review of Systems: All systems reviewed & are unremarkable except as noted in HPI and below Constitutional: Constitutional: Denies chills, Denies fever(s) and Denies weakness ENT: Denies nasal congestion and Denies sore throat Cardiovascular: Cardiovascular: Denies chest pain and Denies radiating jaw, neck or arm pain Respiratory: Respiratory: Denies cough, Denies dyspnea and Denies wheezing Gastrointestinal: Gastrointestinal: Reports abdominal pain, Reports heartburn, Denies nausea and Denies vomiting [facility] Past Medical History Medical History (Updated 09/18/20 @ 15:51 by Gavin Blackwood MD) Cancer of distal third of esophagus Dysphagia Esophageal stricture Hepatitis C Hypertension Ischemic leg pain Neuropathic pain Surgical History Surgical History (Updated 09/18/20 @ 14:04 by Gavin Blackwood MD) Gastrostomy tube in place H/O esophagogastroduodenoscopy Esophageal stent placement Family History Family History Other Unknown family medical history Social History Social History Smoking packs per day: 1 Smoking cigarettes per day: 20.0 Years smoked: 45 Smoking pack-years: 45.00 Smoking status: Former smoker Tobacco type: cigarettes Smoking end date: 05/09/20 Additional smoking assessment comments: QUIT 04/2020 Alcohol intake: current Drinks per week: 4 Substance use: never Substance use type: does not use Gender identity (if verbalized by the patient): Male Spiritual care concerns: No Exam Narrative: Exam Narrative: GENERAL: Chronically ill-appearing, underweight, and in no acute distress. HEAD: Normocephalic, atraumatic. ENT: Mucous membranes moist. CHEST: Clear to auscultation. No respiratory distress. HEART: Tachycardic and regular. Normal peripheral pulses. ABDOMEN: Soft, G-tube in left upper quadrant, mild discomfort around the G-tube site in left lower quadrant, no evidence of skin breakdown or cellulitis, nondistended, normal active bowel sounds. EXTREMITIES: Normal range of motion. No edema. SKIN: Warm, dry, no rash. NEURO: Alert and oriented x3. Course Course Emergency Course: Patient reports that the discomfort he had in his chest earlier was related to his esophagus and swelling issues and it is a chronic issue. Troponins negative x2. He is received IV fluid. Blood pressure currently 132/85 mmHg. Patient still has some persistent tachycardia. Chart review shows that patient is often tachycardic in the outpatient clinic. Patient di
[2020-09-18] MEDS: BELLADONNA ALK/PHENOB ELIX 10 ML, MAG HYDROX/ALUMINUM HYD/SIMETH 30 ML, LIDOCAINE HCL 2... FEED TUBE (14:39)
[2020-09-18 15:04] LABS: Troponin I < 0.012 ng/mL (0.000-0.034)
[2020-09-18 15:15] VITALS: BP 93/64; PULSE 109; RESP 20; O2SAT 97
[2020-09-18] MEDS: HEPARIN SOD FLUSH 500 UNITS/5 ML SYRINGE (16:27)
[2020-09-18 16:33] VITALS: BP 104/65; PULSE 108; RESP 22; O2SAT 97
== END 2020-09-18 16:37 | disposition home or self-care (01) ==
PROVIDERS: Emergency Provider Emergency Medicine
DX: K29.70 Gastritis, unspecified, without bleeding (principal); I10 Essential (primary) hypertension; Z20.828 Contact with and (suspected) exposure to other viral communicable diseases
CPT/HCPCS: 36415; 71046; 74177; 80048; 80053; 84484; 85025; 85610; 85730; 93005; 96361; 96374; 99215; 99284; A9270; G0463; J2270; J7030; Q9967

== ENCOUNTER 2020-10-29 07:42 | Outpatient (CLI) | payer OTHER, SELFPAY ==
--- NOTE | ~2020-10-29 | CT_ITS ---
EXAMINATION: CT chest abdomen pelvis w con EXAM DATE: 10/29/2020 08:11 INDICATION: Cancer of distal third of esophagus. TECHNIQUE: Spiral CT of the chest, abdomen and pelvis was performed following intravenous injection o f 100 mL Omnipaque 350. Axial, coronal and sagittal images were reviewed. Coronal maximum intensity pixel images of chest reviewed. The dose-length product (DLP) for this examination was 256.23 mGy-c m. The exposure was tailored according to patient size (auto mA exposure control), and iterative rec onstruction (ASIR) was used as additional dose reduction technique. Comparison is made to prior exami nation from 05/20/[address], abdomen pelvis CT 09/18/2020. FINDINGS: CHEST: There is more focal mid esophageal thickening for about 5 cm in length, malignancy with signif icant decrease in thickness compared to chest CT 05/20/2020. The upper esophagus is patulous above thi s mass which is likely partially obstructing. No evidence of aspiration pneumonia. There is been also interval improvement in the more diffuse distal esophageal edema compared to abdom en CT 09/18/2020, most consistent with improved esophagitis. There is a right-sided Chemo-Port. Lungs are moderately hyperinflated. Left apical bullous disease. Mild to moderate emphysema. Linear left ba silar scarring. There are no pleural or pericardial effusions. Tracheobronchial tree is patent. T here is no mediastinal, hilar or axillary lymphadenopathy. There is no pneumothorax. Heart normal in size. ABDOMEN PELVIS: There is an IVC filter. Slight nodularity to the left adrenal gland unchanged. The li jose, spleen, and pancreas are unremarkable. Gallbladder is unremarkable. No biliary obstruction. P ortal and splenic veins are patent. Kidneys enhance symmetrically. There is no hydronephrosis. Th e prostate is unremarkable. The bladder is unremarkable. There is no retroperitoneal or pelvic lymp hadenopathy. There is moderate scattered arteriosclerotic disease. There is a left superficial femo ral arterial stent. Surgical clips in the right inguinal region. The appendix is normal. Improvement in the previously seen gastric antral wall edema, likely improve d gastritis. Gastrostomy tube is in position. There is expected amount of colonic stool. No free in traperitoneal gas. There are no osteoblastic or osteolytic lesions identified. IMPRESSION: 1. Improvement in mid esophageal mass and distal esophagitis. No evidence of metastatic disease. 2. Emphysema and hyperinflation. 3. Surgical changes. Reviewed, dictated and finalized at location A. ENT CARE TECHNICIAN IMPRESSION: 1. Improvement in mid esophageal mass and distal esophagitis. No evidence of m etastatic disease. 2. Emphysema and hyperinflation. 3. Surgical changes.
== END 2020-10-29 07:43 | disposition home or self-care (01) ==
PROVIDERS: Visit Provider Internal Medicine Hematology & Oncology
DX: C15.5 Malignant neoplasm of lower third of esophagus (principal); J43.9 Emphysema, unspecified; R91.8 Other nonspecific abnormal finding of lung field
CPT/HCPCS: 71260; 74177; Q9967

== ENCOUNTER 2020-10-31 07:36 | Outpatient (RCR) | payer OTHER, SELFPAY ==
[2020-10-31] VITALS (9 sets, daily range): BP systolic 88–132; BP diastolic 47–73; PULSE 81–90; RESP 14–17; TEMP 36.4–36.9; O2SAT 98–100
[2020-10-31] MEDS: ACETAMINOPHEN 325 MG TABLET 650 MG PO (07:41)
[2020-10-31] MEDS: diphenhydrAMINE HCl CAP 25 MG CAPSULE PO (07:41)
[2020-10-31 07:59] LABS: Hematocrit 23.6 % (42.0-52.0); Hemoglobin 7.5 g/dL (14.0-18.0); Mean Corpuscular HGB Conc 31.8 g/dl (32-36); Mean Corpuscular Hemoglobin 29.1 pg (26-34); Mean Corpuscular Volume 91.5 fl (80-100); Mean Platelet Volume 9.2 fl (7.4-10.4); Platelet Count Result 188 k/mm3 (150-375); Red Blood Count 2.58 M/mm3 (4.6-6.20); Red Cell Distribution Width 16.1 % (11.5-14.5); White Blood Count 3.9 K/mm3 (4.5-10.0)
== END 2021-01-29 23:59 | disposition home or self-care (01) ==
LOC: ANHCPCTRAN 07:36
PROVIDERS: Visit Provider Internal Medicine Hematology & Oncology
DX: C15.5 Malignant neoplasm of lower third of esophagus (principal)
CPT/HCPCS: 36415; 36430; 85027; A9270; P9016